=== PATIENT | female | born 1965 | race American Indian/Alaskan Native ===

== ENCOUNTER 2016-08-16 09:23 | Emergency (ER) | payer MEDICARE ==
--- NOTE | 2016-08-16 10:39 | Emergency Department Report ---
Chief Complaint: Fall Stated Complaint: FELL/BACK PAIN Time Seen by Provider: 08/16/16 10:25 - HPI History of Present Illness: 50-year-old female presents today with back pain and left knee pain post fall that occurred yesterday. Patient states she landed on her back also complaining of chest pain, productive cough with green sputum and headache. Denies fever, chills, nausea, vomiting, shortness of breath, abdominal pain. - ROS Review of Systems: Per HPI - Exam Vital Signs: Vital Signs 08/16/16 10:08 Temperature 98.4 F Pulse Rate 98 H Respiratory 18 Rate Blood Pressure 123/81 O2 Sat by Pulse 96 Oximetry Physical Exam: General: 50-year-old female in mild to moderate distress. Well-developed, well- nourished. CV: Regular rate and rhythm. Lungs: Clear to auscultation bilaterally. Back: Full ROM. Positive for midline and paraspinal tenderness of the lumbar region. Left knee: Full range of motion. Tenderness to palpation of the knee joint. MSE screening note: Focused history and physical exam performed. Due to findings the following was ordered: ED Disposition for MSE Condition: Stable
[2016-08-16 10:48] LABS: Basophils % (Auto) 0.5 % (0.0-1.8); Eosinophils % (Auto) 0.8 % (0.0-4.3); Hematocrit 38.8 % (30.3-42.9); Hemoglobin 12.7 gm/dl (10.1-14.3); Mean Corpuscular HGB Conc 33 % (30-34); Mean Corpuscular Hemoglobin 28 pg (28-32); Mean Corpuscular Volume 84 fl (79-97); Platelet Count 137 K/mm3 (140-440); Red Blood Count 4.59 M/mm3 (3.65-5.03); Red Cell Distribution Width 14.4 % (13.2-15.2); White Blood Count 5.1 K/mm3 (4.5-11.0)
[2016-08-16 11:12] LABS: Creatine Kinase MB < 1.0 ng/mL (0.0-4.0)
[2016-08-16 11:13] LABS: Anion Gap 16 mmol/L; BUN/Creatinine Ratio 18.57; Blood Urea Nitrogen 13 mg/dL (7-17); Calcium 9.5 mg/dL (8.4-10.2); Carbon Dioxide 29 mmol/L (22-30); Chloride 95.7 mmol/L (98-107); Creatine Kinase 52 units/L (30-135); Glucose 319 mg/dL (65-100); Potassium 3.9 mmol/L (3.6-5.0); Sodium 137 mmol/L (137-145)
--- NOTE | 2016-08-16 11:55 | XRay Report ---
LEFT KNEE RADIOGRAPHS INDICATION: Fall, pain. COMPARISON: None similar. FINDINGS: AP, oblique and somewhat over flexed lateral left knee radiographs demonstrate intact articulation. Slight degenerative spurring. Some medial compartment and patellofemoral joint space narrowing not entirely excluded. No definite suprapatellar effusion identified, though some suprapatellar soft tissue swelling questioned on the lateral view. No radiopaque foreign body. CONCLUSION: Questionable mild left suprapatellar soft tissue swelling without acute bony abnormality. Please correlate. Thank you for the opportunity to participate in this patient's care.
--- NOTE | 2016-08-16 11:56 | XRay Report ---
CHEST 2 VIEWS INDICATION: Chest pain. COMPARISON: 04/25/2015 FINDINGS: PA and lateral chest radiographs demonstrate interval right-sided dual-lumen catheter removal. Stable cardiomediastinal silhouette/mild cardiomegaly. Clear lungs without pleural effusions or CHF. Right hemidiaphragm again slightly elevated. Mild thoracic spine degenerative changes. Possible osteopenia. CONCLUSION: No acute chest process with interval removal of right-sided central catheter, as described. Thank you for the opportunity to participate in this patient's care.
--- NOTE | 2016-08-16 11:56 | XRay Report ---
LUMBAR SPINE RADIOGRAPHS: INDICATION: Fall, midline tenderness. COMPARISON: 09/06/2014. FINDINGS: AP and lateral lumbar spine radiographs demonstrate normal vertebral body stature with slight levocurvature, possibly positional. Mid to lower lumbar facet arthropathy and vertebral body degenerative spurring also noted, most about L3 and L4. Fairly preserved disc heights. Clear visualized lung bases. New presumed cholecystectomy clips as also few other surgical clips projecting about the left iliac crest medially. Nonobstructive bowel gas pattern with some colonic stool noted. CONCLUSION: No acute lumbar radiographic abnormality with few degenerative changes and new surgical clips noted, as described. Please correlate. Thank you for the opportunity to participate in this patient's care.
[2016-08-16] MEDS ORDERED: AFRIN NS ONE (20:41)
[2016-08-16] MEDS ORDERED: VALIUM IM ONE (20:41)
--- NOTE | 2016-08-16 20:47 | Emergency Department Report ---
ED General Adult HPI - General Chief complaint: Fall Stated complaint: FELL/BACK PAIN Time Seen by Provider: 08/16/16 10:25 Source: patient, RN notes reviewed, old records reviewed Mode of arrival: Ambulatory Limitations: No Limitations - History of Present Illness Initial comments: This is a 50-year-old female, previously unknown to me. Primary care physician is Dr. Parul Soriano. Past medical history includes diabetes, HIV on highly active antiretrovirals therapy, pancreatitis. The patient presents to the ER after fall. Patient reports that she slipped and fell in her tub yesterday. The first time she fell , she landed on her buttocks. She then reports attempting to get up, and slipping again, landing on her left wrist, left knee, right chest wall, hitting her head and her neck. She complains of headache, neck pain. She also complains of lower back pain. The pain is sharp. It increases with palpation or range of motion. It decreases with rest. Incidentally, patient complains of nasal fullness, nasal stuffiness, chest congestion. There is no vomiting, diaphoresis, severe shortness of breath. Chest pressure does not radiates to the back, arms or neck. No recent trips greater than 4 hours. No recent hospital admissions. No posterior leg pain, no recent trips. -: Gradual Location: head, neck, chest, back, left, right, upper extremity Radiation: distal Severity scale (0 -10): 10 Quality: aching Consistency: intermittent Improves with: rest Worsens with: movement Associated Symptoms: cough, headaches, loss of appetite, weakness - Related Data Home Medications Medication Instructions Recorded Confirmed Last Taken Darunavir/Cobicistat [Prezcobix 600 mg PO QDAY 04/18/16 08/16/16 Unknown 800 mg-150 mg Tablet] Dolutegravir Sodium [Tivicay] 50 mg PO QDAY 04/18/16 08/16/16 Unknown Insulin Glargine [Lantus] 20 unit SUB-Q QHS 04/18/16 08/16/16 Unknown Insulin Aspart Prot/Aspart 20 units SQ QPM 08/16/16 08/16/16 Unknown [Novolog Mix 70/30] Insulin Aspart Prot/Aspart 30 units SQ QAM 08/16/16 08/16/16 Unknown [Novolog Mix 70/30] Previous Rx's Medication Instructions Recorded Last Taken Type Albuterol Sulfate [Proair 90 mcg IH Q4HR PRN #2 aer.pow.ba 08/16/16 Unknown Rx Respiclick] Benzonatate [Tessalon Perles] 100 mg PO Q8HR PRN #30 capsule 08/16/16 Unknown Rx Fluticasone [Flonase] 1 spray NS QDAY #1 bottle 08/16/16 Unknown Rx Ketorolac [Toradol] 10 mg PO Q6H PRN #20 tablet 08/16/16 Unknown Rx Allergies Allergy/AdvReac Type Severity Reaction Status Date / Time No Known Allergies Allergy Verified 04/02/15 13:10 ED Review of Systems ROS: Stated complaint: FELL/BACK PAIN Other details as noted in HPI Constitutional: malaise ENT: congestion Respiratory: cough Cardiovascular: chest pain Gastrointestinal: denies: abdominal pain Genitourinary: denies: urgency, dysuria Musculoskeletal: back pain, arthralgia, myalgia Skin: denies: lesions Neurological: headache ED Past Medical Hx - Past Medical History Previous Medical History?: Yes Hx Hypertension: No Hx Diabetes: Yes Hx Deep Vein Thrombosis: No Hx HIV: Yes - Surgical History Past Surgical History?: Yes Hx Pacemaker: No Hx Internal Defibrillator: No Hx Cholecystectomy: Yes Additional Surgical History: x 3 - Social History Smoking Status: Never Smoker Substance Use Type: None - Medications Home Medications: Home Medications Medication Instructions Recorded Confirmed Last Taken Type Darunavir/Cobicistat [Prezcobix 600 mg PO QDAY 04/18/16 08/16/16 Unknown History 800 mg-150 mg Tablet] Dolutegravir Sodium [Tivicay] 50 mg PO QDAY 04/18/16 08/16/16 Unknown History Insulin Glargine [Lantus] 20 unit SUB-Q QHS 04/18/16 08/16/16 Unknown History Albuterol Sulfate [Proair 90 mcg IH Q4HR PRN #2 aer.pow.ba 08/16/16 Unknown Rx Respiclick] Benzonatate [Tessalon Perles] 100 mg PO Q8HR PRN #30 capsule 08/16/16 Unknown Rx Fluticasone [Flonase] 1 spray NS QDAY #1 bottle 08/16/16 Unknown Rx Insulin Aspart Prot/Aspart 20 units SQ QPM 08/16/16 08/16/16 Unknown History [Novolog Mix 70/30] Insulin Aspart Prot/Aspart 30 units SQ QAM 08/16/16 08/16/16 Unknown History [Novolog Mix 70/30] Ketorolac [Toradol] 10 mg PO Q6H PRN #20 tablet 08/16/16 Unknown Rx ED Physical Exam - General Limitations: No Limitations General appearance: alert, in no apparent distress - Head Head exam: Present: atraumatic, normocephalic - Eye Eye exam: Present: normal appearance, PERRL, EOMI. Absent: nystagmus - ENT ENT exam: Present: normal exam, normal orophraynx, mucous membranes moist, normal external ear exam, other (nasal congestion is noted bilaterally.) - Neck Neck exam: Present: normal inspection, tenderness, other (there is midline and paracervical spinal tenderness. No midline step-offs.) - Respiratory Respiratory exam: Present: normal lung sounds bilaterally, chest wall tenderness (reproducible right-sided lateral thoracic chest wall tenderness. No obvious step-offs.). Absent: respiratory distress, wheezes, rales, rhonchi, stridor, accessory muscle use, prolonged expiratory - Cardiovascular Cardiovascular Exam: Present: regular rate, normal rhythm, normal heart sounds. Absent: bradycardia, tachycardia, irregular rhythm, systolic murmur, diastolic murmur, rubs, gallop - GI/Abdominal GI/Abdominal exam: Present: soft, normal bowel sounds. Absent: distended, tenderness, guarding, rebound, rigid, pulsatile mass - Extremities Exam Extremities exam: Present: normal inspection, full ROM, tenderness (there is minimal left-sided knee tenderness. No large bony step-offs. The pelvis is stable. Compartments are soft.), normal capillary refill, other (2+ pulses noted in 4 extremities.). Absent: pedal edema, joint swelling, calf tenderness - Back Exam Back exam: Present: normal inspection, tenderness, paraspinal tenderness, vertebral tenderness - Neurological Exam Neurological exam: Present: alert, oriented X3, other (Extraocular movements intact. Tongue midline. No facial droop. Facial sensation intact to light touch in the V1, V2, V3 distribution bilaterally. 5 and 5 strength in 4 extremities.. Sensation is intact to light touch in 4 extremities.). Absent: motor sensory deficit - Psychiatric Psychiatric exam: Present: anxious - Skin Skin exam: Present: warm, dry, intact, normal color. Absent: rash ED Course Vital Signs 08/16/16 08/16/16 08/16/16 10:08 20:21 20:26 Temperature 98.4 F Pulse Rate 98 H 87 Respiratory 18 20 18 Rate Blood Pressure 123/81 Blood Pressure 108/62 [Left] O2 Sat by Pulse 96 99 99 Oximetry 08/16/16 08/16/16 22:00 23:14 Temperature Pulse Rate 94 H Respiratory 20 18 Rate Blood Pressure Blood Pressure 116/68 [Left] O2 Sat by Pulse 99 Oximetry - Reevaluation(s) Reevaluation #1: 08/16/16 20:45 Differential diagnosis: Sinusitis,, viral syndrome, intracranial injury, cervical spine injury, lumbar spine injury, chest wall contusion, pneumonia Assessment and plan: 50-year-old female status post multiple mechanical falls yesterday, with headache, neck pain, back pain, right lateral thoracic wall pain , left knee pain. She has a GCS of 15, with an NIH score of 0. Has midline and paracervical cervical spine tenderness. Cervical collar is ordered. Patient is very anxious, has a significant pain component, may be somewhat anxious. We will obtain CT of the head, cervical spine, lumbar spine to exclude medical injury, although I highly doubt that she has no evident injury. When she is distracted, I am able to fully range her upper and lower extremities, and there is no snuffbox tenderness or pain with somewhat axial loading. Her chest discomfort seems to be consistent with a viral syndrome/ cough. It has been present since yesterday. There are no pulmonary embolus or DVT risk factors, she is low risk by well's criteria, and she is low risk by the heart score as well as by ERVIN score. All of her chest congestion is in the context of facial fullness, nasal congestion, cough. Reevaluation #2: 08/16/16 22:24 Reassessed. Cervical collar cleared. CT of the brain, cervical spine, lumbar spine negative for traumatic injury. Repeat neurologic exam unremarkable and unchanged. Patient is instructed to expect to be sore over the next few days. She will be discharged with nonnarcotic pain medication, cough medication, Flonase. She is instructed to follow-up with the primary care doctor. Return precautions are reviewed. ED Medical Decision Making - Lab Data Result diagrams: 08/16/16 10:39 08/16/16 10:39 Vital Signs 08/16/16 08/16/16 08/16/16 10:08 20:21 20:26 Temperature 98.4 F Pulse Rate 98 H 87 Respiratory 18 20 18 Rate Blood Pressure 123/81 Blood Pressure 108/62 [Left] O2 Sat by Pulse 96 99 99 Oximetry Lab Results 08/16/16 08/16/16 08/16/16 Range/Units 10:13 10:39 10:39 WBC 5.1 (4.5-11.0) K/mm3 RBC 4.59 (3.65-5.03) M/mm3 Hgb 12.7 (10.1-14.3) gm/dl Hct 38.8 (30.3-42.9) % MCV 84 (79-97) fl MCH 28 (28-32) pg MCHC 33 (30-34) % RDW 14.4 (13.2-15.2) % Plt Count 137 L (140-440) K/mm3 Lymph % (Auto) 17.5 (13.4-35.0) % [place] % (Auto) 7.3 (0.0-7.3) % Eos % (Auto) 0.8 (0.0-4.3) % Baso % (Auto) 0.5 (0.0-1.8) % Lymph # 0.9 L (1.2-5.4) K/mm3 [place] # 0.4 (0.0-0.8) K/mm3 Eos # 0.0 (0.0-0.4) K/mm3 Baso # 0.0 (0.0-0.1) K/mm3 Seg Neutrophils % 73.9 H (40.0-70.0) % Seg Neutrophils # 3.8 (1.8-7.7) K/mm3 Sodium 137 (137-145) mmol/L Potassium 3.9 (3.6-5.0) mmol/L Chloride 95.7 L (98-107) mmol/L Carbon Dioxide 29 (22-30) mmol/L Anion Gap 16 mmol/L BUN 13 (7-17) mg/dL Creatinine 0.7 (0.7-1.2) mg/dL Estimated GFR > 60 ml/min BUN/Creatinine Ratio 18.57 % Glucose 319 H (65-100) mg/dL POC Glucose 286 H (70-105) Calcium 9.5 (8.4-10.2) mg/dL Total Creatine Kinase 52 (30-135) units/L CK-MB (CK-2) < 1.0 (0.0-4.0) ng/mL CK-MB (CK-2) Rel Index 1.9 (0-4) Troponin T < 0.010 (0.00-0.029) ng/mL - EKG Data 08/16/16 20:48 Normal sinus, 92 bpm, atrial enlargement, nonspecific T-wave abnormality, not morphologically consistent with STEMI. Appears unchanged from prior EKG 2015. - Radiology Data Radiology results: report reviewed, image reviewed X-ray of the chest unremarkable and within normal limits. X-ray of the lumbar spine negative. X-ray of the left knee negative for fracture and dislocation. Noncontrast CT scan of the head, cervical spine, lumbar spine negative for acute traumatic disease. Critical care attestation.: If time is entered above; I have spent that time in minutes in the direct care of this critically ill patient, excluding procedure time. ED Disposition Clinical Impression: Fall, Back pain, Bronchitis Disposition: DISCHARGED TO HOME OR SELFCARE Is pt being admited?: No Does the pt Need Aspirin: No Condition: Stable Instructions: Acute Bronchitis (ED), Fall Prevention (ED) Additional Instructions: Pain typically gets worse before it gets better. X-rays, CT scan of the head, cervical spine, lumbar spine did not demonstrate obvious fracture/dislocation. Use the Afrin in each nostril every 12 hours for the next 2 days. Do not use the Afrin more often than that or for longer than that. Take pain medication, cough medication as directed. Follow-up with the primary care doctor within the next week to 10 days. Return to the ER right away with new pain, worsened pain, migration of pain, fevers or chills, nausea or vomiting, inability to tolerate liquid feeds. Prescriptions: Fluticasone [Flonase] 1 spray NS QDAY #1 bottle Albuterol Sulfate [Proair Respiclick] 90 mcg IH Q4HR PRN #2 aer.pow.ba PRN Reason: Wheezing Benzonatate [Tessalon Perles] 100 mg PO Q8HR PRN #30 capsule PRN Reason: Cough Ketorolac [Toradol] 10 mg PO Q6H PRN #20 tablet PRN Reason: Pain Referrals: PARUL SORIANO MD [Primary Care Provider] - 3-5 Days
--- NOTE | 2016-08-16 21:44 | Cat Scan Report ---
FINAL REPORT PROCEDURE: CT LUMBAR SPINE WO CON TECHNIQUE: Computerized axial tomography of the lumbar spine was performed from T12 to the sacrum without contrast material. HISTORY: HEADACHE TRAUMA COMPARISON: No prior studies are available for comparison. FINDINGS: Alignment is satisfactory. No fracture. L1-2: No significant abnormality. L2-3: No significant abnormality. L3-4: Mild anterior spurring. Disc bulge. Facet spurring. No canal stenosis. L4-5: Disc bulge. No disc herniation. Mild facet spurring. L5-S1: No significant abnormality. Other: Atherosclerotic calcifications. Cholecystectomy clips. IMPRESSION: No fracture. Mild degenerative change.
--- NOTE | 2016-08-16 21:50 | Cat Scan Report ---
FINAL REPORT PROCEDURE: CT CERVICAL SPINE WO CON TECHNIQUE: Computerized tomography of the cervical spine was performed from the skull base to T1 without contrast material. HISTORY: HEADACHE TRAUMA COMPARISON: No prior studies are available for comparison. FINDINGS: Reversal of the cervical lordosis. Alignment is otherwise satisfactory. No fracture. Odontoid process is intact. C1-2: Mild spurring of the anterior atlantoaxial articulation. C2-3: No significant abnormality. C3-4: Disc bulge. No disc herniation. No canal stenosis. C4-5: Disc bulge with mild spurring. No disc herniation. No canal stenosis. C5-6: Disc space narrowing with endplate change. Disc bulge and spurring asymmetric to the right. Narrowing of the right lateral recess. Facet and uncovertebral spurring with right greater than left foraminal encroachment. No canal stenosis. C6-7: Disc bulge with right paracentral disc protrusion narrowing the right lateral recess. C7-T1: No significant abnormality. Other: Fibrotic densities at the lung apices. Atherosclerotic calcifications. IMPRESSION: Degenerative change including spurring asymmetric to the right at C5-6. No fracture.
--- NOTE | 2016-08-16 21:55 | Cat Scan Report ---
FINAL REPORT PROCEDURE: CT HEAD/BRAIN WO CON TECHNIQUE: Computerized tomography of the head was performed without contrast material. HISTORY: HEADACHE TRAUMA COMPARISON: No prior studies are available for comparison. FINDINGS: Skull and scalp: Normal. Paranasal sinuses: Mild mucosal thickening.. Ventricles and subarachnoid spaces: Normal. Cerebrum: No evidence of hemorrhage, acute infarction or mass . Cerebellum and brainstem: No evidence of hemorrhage, acute infarction or mass. Vasculature: Normal. Comments: None. IMPRESSION: Normal CT brain. No hemorrhage.
[2016-08-16] MEDS ORDERED: TORADOL IM ONE (22:24)
[2016-08-16 23:17] VITALS: BP 116/68
== END 2016-08-16 23:17 | disposition home or self-care (01) ==
LOC: ED 09:23
DX: J40 Bronchitis, not specified as acute or chronic (principal); M54.9 Dorsalgia, unspecified; E11.9 Type 2 diabetes mellitus without complications; Z79.4 Long term (current) use of insulin; W19.XXXA Unspecified fall, initial encounter; Y93.89 Activity, other specified; Y99.8 Other external cause status; Y92.89 Other specified places as the place of occurrence of the external cause
CPT/HCPCS: 36415; 70450; 71020; 72100; 72125; 72131; 73562; 80048; 82550; 82553; 82962; 84484; 85025; 93005; 93010; 96372; 99284; J1885; J3360

== ENCOUNTER 2017-03-10 10:24 | Emergency (ER) | payer MEDICARE ==
[2017-03-10 11:06] LABS: Basophils % (Auto) 0.4 % (0.0-1.8); Eosinophils % (Auto) 1.2 % (0.0-4.3); Hematocrit 39.4 % (30.3-42.9); Mean Corpuscular HGB Conc 33 % (30-34); Mean Corpuscular Hemoglobin 29 pg (28-32); Mean Corpuscular Volume 88 fl (79-97); Platelet Count 155 K/mm3 (140-440); Red Blood Count 4.49 M/mm3 (3.65-5.03); Red Cell Distribution Width 13.8 % (13.2-15.2); White Blood Count 5.3 K/mm3 (4.5-11.0)
[2017-03-10 11:20] LABS: Alanine Aminotransferase 12 units/L (7-56); Albumin/Globulin Ratio 1.1 %; Alkaline Phosphatase 57 units/L (35-129); Anion Gap 19 mmol/L; BUN/Creatinine Ratio 24.44; Blood Urea Nitrogen 22 mg/dL (7-17); Carbon Dioxide 25 mmol/L (22-30); Chloride 95.6 mmol/L (98-107); Glucose 297 mg/dL (65-100); Lipase 28 units/L (13-60); Potassium 4.3 mmol/L (3.6-5.0); Sodium 135 mmol/L (137-145); Total Protein 7.5 g/dL (6.3-8.2)
[2017-03-10 12:51] LABS: Bacteria,Urine 4+ /HPF (Negative); Bilirubin,Urine NEG (Negative); Blood,Urine NEG (Negative); Ketones,Urine NEG (Negative); Leukocyte Esterase,Urine NEG (Negative); Nitrite,Urine NEG (Negative); Protein,Urine <15 mg/dL mg/dL (Negative); Urobilinogen,Urine < 2.0 mg/dL (<2.0)
[2017-03-10] MEDS ORDERED: MORPHINE IV ONE (13:33)
[2017-03-10] MEDS ORDERED: ZOFRAN IV ONE (13:33)
[2017-03-10] MEDS ORDERED: NACL 0.9% 1000 ML 1,000 ML IV ONE (13:33)
--- NOTE | 2017-03-10 13:38 | Emergency Department Report ---
ED Abdominal Pain HPI - General Chief Complaint: Abdominal Pain Stated Complaint: BLACK STOOL,ABD PAIN Time Seen by Provider: 03/10/17 13:28 Source: patient Mode of arrival: Ambulatory Limitations: No Limitations - History of Present Illness Initial Comments: 51 years old history of HIV presented to the ER with a main complaint of abdominal pain nausea and dizziness starting him on for 4 days. She stated that she had fever yesterday 101. Denied any urinary symptoms no cough no diarrhea. MD Complaint: abdominal pain, flank pain Location: diffuse Radiation: back Quality: stabbing Improves With: nothing - Related Data Home Medications Medication Instructions Recorded Confirmed Last Taken Darunavir/Cobicistat (Nf) 600 mg PO QDAY 04/18/16 08/16/16 Unknown [Prezcobix 800 mg-150 mg Tablet] Dolutegravir Sodium [Tivicay] 50 mg PO QDAY 04/18/16 08/16/16 Unknown Insulin Glargine [Lantus] 20 unit SUB-Q QHS 04/18/16 08/16/16 Unknown Insulin Aspart Prot/Aspart(Nf) 20 units SQ QPM 08/16/16 08/16/16 Unknown [Novolog Mix 70/30] Insulin Aspart Prot/Aspart(Nf) 30 units SQ QAM 08/16/16 08/16/16 Unknown [Novolog Mix 70/30] Previous Rx's Medication Instructions Recorded Last Taken Type Albuterol Sulfate [Proair 90 mcg IH Q4HR PRN #2 aer.pow.ba 08/16/16 Unknown Rx Respiclick] Benzonatate [Tessalon Perles] 100 mg PO Q8HR PRN #30 capsule 08/16/16 Unknown Rx Fluticasone [Flonase] 1 spray NS QDAY #1 bottle 08/16/16 Unknown Rx Ketorolac [Toradol] 10 mg PO Q6H PRN #20 tablet 08/16/16 Unknown Rx Ciprofloxacin HCl [Ciprofloxacin 500 mg PO Q12H #20 tab 03/10/17 Unknown Rx TAB] Ondansetron [Zofran Odt] 4 mg PO Q8HR PRN #14 tab.rapdis 03/10/17 Unknown Rx metroNIDAZOLE [Flagyl CAP] 375 mg PO Q8H #21 capsule 03/10/17 Unknown Rx traMADol [Ultram] 50 mg PO Q6HR PRN #14 tablet 03/10/17 Unknown Rx Allergies Allergy/AdvReac Type Severity Reaction Status Date / Time No Known Allergies Allergy Verified 03/10/17 10:33 ED Review of Systems ROS: Stated complaint: BLACK STOOL,ABD PAIN Other details as noted in HPI Comment: All other systems reviewed and negative Constitutional: chills, fever Respiratory: denies: cough, shortness of breath, SOB with exertion Cardiovascular: denies: chest pain, palpitations, dyspnea on exertion Endocrine: denies: excessive sweating Gastrointestinal: abdominal pain, vomiting. denies: diarrhea, constipation, hematemesis, melena, hematochezia Genitourinary: denies: dysuria, frequency Neurological: denies: headache, weakness, numbness ED Past Medical Hx - Past Medical History Hx Hypertension: No Hx Diabetes: Yes Hx Deep Vein Thrombosis: No Hx Renal Disease: Yes Hx HIV: Yes - Surgical History Hx Pacemaker: No Hx Internal Defibrillator: No Hx Cholecystectomy: Yes Additional Surgical History: x 3. PERMA CATH AND REMOVAL. PSEUDO CYSTS REMOVED FROM PANCREAS - Social History Smoking Status: Current Every Day Smoker Substance Use Type: None - Medications Home Medications: Home Medications Medication Instructions Recorded Confirmed Last Taken Type Darunavir/Cobicistat (Nf) 600 mg PO QDAY 04/18/16 08/16/16 Unknown History [Prezcobix 800 mg-150 mg Tablet] Dolutegravir Sodium [Tivicay] 50 mg PO QDAY 04/18/16 08/16/16 Unknown History Insulin Glargine [Lantus] 20 unit SUB-Q QHS 04/18/16 08/16/16 Unknown History Albuterol Sulfate [Proair 90 mcg IH Q4HR PRN #2 aer.pow.ba 08/16/16 Unknown Rx Respiclick] Benzonatate [Tessalon Perles] 100 mg PO Q8HR PRN #30 capsule 08/16/16 Unknown Rx Fluticasone [Flonase] 1 spray NS QDAY #1 bottle 08/16/16 Unknown Rx Insulin Aspart Prot/Aspart(Nf) 20 units SQ QPM 08/16/16 08/16/16 Unknown History [Novolog Mix 70/30] Insulin Aspart Prot/Aspart(Nf) 30 units SQ QAM 08/16/16 08/16/16 Unknown History [Novolog Mix 70/30] Ketorolac [Toradol] 10 mg PO Q6H PRN #20 tablet 08/16/16 Unknown Rx Ciprofloxacin HCl [Ciprofloxacin 500 mg PO Q12H #20 tab 03/10/17 Unknown Rx TAB] Ondansetron [Zofran Odt] 4 mg PO Q8HR PRN #14 tab.rapdis 03/10/17 Unknown Rx metroNIDAZOLE [Flagyl CAP] 375 mg PO Q8H #21 capsule 03/10/17 Unknown Rx traMADol [Ultram] 50 mg PO Q6HR PRN #14 tablet 03/10/17 Unknown Rx ED Physical Exam - General Limitations: No Limitations General appearance: alert, in no apparent distress - Head Head exam: Present: atraumatic - Eye Eye exam: Present: normal appearance - ENT ENT exam: Present: normal exam - Neck Neck exam: Present: normal inspection. Absent: tenderness, meningismus, full ROM, lymphadenopathy - Respiratory Respiratory exam: Present: normal lung sounds bilaterally. Absent: respiratory distress, wheezes, rales, rhonchi, stridor, chest wall tenderness, accessory muscle use, decreased breath sounds, prolonged expiratory - Cardiovascular Cardiovascular Exam: Present: regular rate, normal rhythm, normal heart sounds - GI/Abdominal GI/Abdominal exam: Present: soft, tenderness. Absent: distended, guarding, rebound, rigid, normal bowel sounds, diminished bowel sounds, hyperactive bowel sounds, hypoactive bowel sounds, organomegaly, mass, bruit, pulsatile mass, hernia - Extremities Exam Extremities exam: Present: normal inspection, full ROM. Absent: tenderness, normal capillary refill, pedal edema, joint swelling - Neurological Exam Neurological exam: Present: alert, oriented X3, CN II-XII intact - Skin Skin exam: Present: warm, intact, normal color ED Course Vital Signs 03/10/17 10:36 Temperature 98.2 F Pulse Rate 85 Respiratory 17 Rate Blood Pressure 121/80 O2 Sat by Pulse 96 Oximetry - Reevaluation(s) Reevaluation #1: 03/10/17 15:07 Patient stated that she is feeling much better informed about her CT scan reports. He was started on Cipro and Flagyl and advised follow-up with her primary care physician in the next 2-3 days. ED Medical Decision Making - Lab Data Result diagrams: 03/10/17 10:49 03/10/17 10:49 Critical care attestation.: If time is entered above; I have spent that time in minutes in the direct care of this critically ill patient, excluding procedure time. ED Disposition Clinical Impression: Abdominal pain, Enteritis Disposition: TO HOME OR SELFCARE Is pt being admited?: No Condition: Stable Instructions: Abdominal Pain (ED), Infectious Colitis (ED) Referrals: PARUL DESIR MD [Primary Care Provider] - 3-5 Days
--- NOTE | 2017-03-10 14:30 | Cat Scan Report ---
This IV contrast: History: Abdominal pain, back pain. Findings: Normal lung bases. No pleural or pericardial effusion. Normal liver, spleen and pancreas. Patient status post cholecystectomy. No intrahepatic duct dilatation. Normal adrenals. Subcentimeter hypodense densities in cortex of left kidney probably small cysts. Normal bladder. No free intraperitoneal fluid or air. No evidence of adenopathy. Atherosclerotic abdominal aorta without aneurysm. Normal appendix and terminal ileum. Few scattered diverticula in sigmoid with minimal stool in colon. No bowel distention. Suspected minimal thickening of the wall of small bowel loops with fluid within the bowel Impression: No definite acute abdominal findings though possibility of mild enteritis cannot be excluded. Small left kidney cortical cysts.
[2017-03-10 15:44] VITALS: BP 128/78
== END 2017-03-10 15:43 | disposition home or self-care (01) ==
LOC: ED 10:24
DX: K52.9 Noninfective gastroenteritis and colitis, unspecified (principal); E11.9 Type 2 diabetes mellitus without complications; F17.200 Nicotine dependence, unspecified, uncomplicated
CPT/HCPCS: 36415; 74177; 80053; 81001; 83690; 85025; 96361; 96374; 96375; 99284; J2270; J2405; J7030; Q9967; J1815

== ENCOUNTER 2017-06-13 14:38 | Emergency (ER) | payer MEDICARE ==
[2017-06-13 14:46] VITALS: BP 120/80
--- NOTE | 2017-06-13 16:28 | XRay Report ---
CHEST 2 VIEWS INDICATION: Chest pain. COMPARISON: 08/16/2016. FINDINGS: PA and lateral chest radiographs demonstrate top normal heart size. Normal mediastinal contours. Clear lungs. Mild thoracic spondylosis. CONCLUSION: No acute disease in the chest. Thank you for the opportunity to participate in this patient's care.
[2017-06-13] MEDS ORDERED: TORADOL IM ONE (16:31)
[2017-06-13] MEDS ORDERED: TORADOL ONE (17:13)
--- NOTE | 2017-06-13 17:15 | Emergency Department Report ---
ED Back Pain/Injury HPI - General Chief Complaint: Back Pain/Injury Stated Complaint: BACK PAIN, AND C/P Time Seen by Provider: 06/13/17 16:30 Source: patient Limitations: No Limitations - History of Present Illness Initial Comments: pt is a 51 y/o aaf with hx of low back pain who presents for for left lateral upper back and chest wall pain with deep inspiration. no sob no dizziness no n/ v no numbness. pt denies cough or fever, no chills, MD Complaint: back pain Onset/Timin -: week(s) Similar Symptoms Previously: Yes Place: home Radiation: other (left upper back ) Severity: moderate Severity scale (0 -10): 4 Quality: sharp Consistency: intermittent Improves With: none Worsens With: deep breaths/cough Context: while lifting, turning/twisting Associated Symptoms: chest pain (chest wall pain ), cough. denies: confusion, weakness, numbness, difficulty walking, difficulty urinating, incontinence, fever/chills, constipation, headaches, abdominal pain, loss of appetite, malaise , nausea/vomiting, rash, seizure, shortness of breath, syncope - Related Data Home Medications Medication Instructions Recorded Confirmed Last Taken Darunavir/Cobicistat (Nf) 600 mg PO QDAY 04/18/16 08/16/16 Unknown [Prezcobix 800 mg-150 mg Tablet] Dolutegravir Sodium [Tivicay] 50 mg PO QDAY 04/18/16 08/16/16 Unknown Insulin Glargine [Lantus] 20 unit SUB-Q QHS 04/18/16 08/16/16 Unknown Insulin Aspart Prot/Aspart(Nf) 20 units SQ QPM 08/16/16 08/16/16 Unknown [Novolog Mix 70/30] Insulin Aspart Prot/Aspart(Nf) 30 units SQ QAM 08/16/16 08/16/16 Unknown [Novolog Mix 70/30] Previous Rx's Medication Instructions Recorded Last Taken Type Albuterol Sulfate [Proair 90 mcg IH Q4HR PRN #2 aer.pow.ba 08/16/16 Unknown Rx Respiclick] Benzonatate [Tessalon Perles] 100 mg PO Q8HR PRN #30 capsule 08/16/16 Unknown Rx Fluticasone [Flonase] 1 spray NS QDAY #1 bottle 08/16/16 Unknown Rx Ketorolac [Toradol] 10 mg PO Q6H PRN #20 tablet 08/16/16 Unknown Rx Ciprofloxacin HCl [Ciprofloxacin 500 mg PO Q12H #20 tab 03/10/17 Unknown Rx TAB] Ondansetron [Zofran Odt] 4 mg PO Q8HR PRN #14 tab.rapdis 03/10/17 Unknown Rx metroNIDAZOLE [Flagyl CAP] 375 mg PO Q8H #21 capsule 03/10/17 Unknown Rx traMADol [Ultram] 50 mg PO Q6HR PRN #14 tablet 03/10/17 Unknown Rx Cyclobenzaprine [Flexeril] 10 mg PO TID PRN #30 tablet 06/13/17 Unknown Rx Naproxen 500 mg PO BID PRN #60 tablet 06/13/17 Unknown Rx Allergies Allergy/AdvReac Type Severity Reaction Status Date / Time No Known Allergies Allergy Verified 03/10/17 10:33 ED Review of Systems ROS: Stated complaint: BACK PAIN, AND C/P Other details as noted in HPI Constitutional: denies: chills, fever Eyes: denies: eye pain, eye discharge, vision change ENT: denies: ear pain, throat pain Respiratory: denies: cough, shortness of breath, wheezing Cardiovascular: chest pain (chest wall pain ). denies: palpitations, dyspnea on exertion, orthopnea, edema, syncope, paroxysmal nocturnal dyspnea Endocrine: no symptoms reported Gastrointestinal: denies: abdominal pain, nausea, diarrhea Genitourinary: denies: urgency, dysuria, discharge Musculoskeletal: denies: back pain, joint swelling, arthralgia Skin: denies: rash, lesions Neurological: denies: headache, weakness, paresthesias Psychiatric: denies: anxiety, depression Hematological/Lymphatic: denies: easy bleeding, easy bruising ED Past Medical Hx - Past Medical History Hx Hypertension: No Hx Diabetes: Yes Hx Deep Vein Thrombosis: No Hx Renal Disease: Yes Hx HIV: Yes - Surgical History Hx Pacemaker: No Hx Internal Defibrillator: No Hx Cholecystectomy: Yes Additional Surgical History: x 3. PERMA CATH AND REMOVAL. PSEUDO CYSTS REMOVED FROM PANCREAS - Social History Smoking Status: Never Smoker Substance Use Type: None - Medications Home Medications: Home Medications Medication Instructions Recorded Confirmed Last Taken Type Darunavir/Cobicistat (Nf) 600 mg PO QDAY 04/18/16 08/16/16 Unknown History [Prezcobix 800 mg-150 mg Tablet] Dolutegravir Sodium [Tivicay] 50 mg PO QDAY 04/18/16 08/16/16 Unknown History Insulin Glargine [Lantus] 20 unit SUB-Q QHS 04/18/16 08/16/16 Unknown History Albuterol Sulfate [Proair 90 mcg IH Q4HR PRN #2 aer.pow.ba 08/16/16 Unknown Rx Respiclick] Benzonatate [Tessalon Perles] 100 mg PO Q8HR PRN #30 capsule 08/16/16 Unknown Rx Fluticasone [Flonase] 1 spray NS QDAY #1 bottle 08/16/16 Unknown Rx Insulin Aspart Prot/Aspart(Nf) 20 units SQ QPM 08/16/16 08/16/16 Unknown History [Novolog Mix 70/30] Insulin Aspart Prot/Aspart(Nf) 30 units SQ QAM 08/16/16 08/16/16 Unknown History [Novolog Mix 70/30] Ketorolac [Toradol] 10 mg PO Q6H PRN #20 tablet 08/16/16 Unknown Rx Ciprofloxacin HCl [Ciprofloxacin 500 mg PO Q12H #20 tab 03/10/17 Unknown Rx TAB] Ondansetron [Zofran Odt] 4 mg PO Q8HR PRN #14 tab.rapdis 03/10/17 Unknown Rx metroNIDAZOLE [Flagyl CAP] 375 mg PO Q8H #21 capsule 03/10/17 Unknown Rx traMADol [Ultram] 50 mg PO Q6HR PRN #14 tablet 03/10/17 Unknown Rx Cyclobenzaprine [Flexeril] 10 mg PO TID PRN #30 tablet 06/13/17 Unknown Rx Naproxen 500 mg PO BID PRN #60 tablet 06/13/17 Unknown Rx ED Physical Exam - General Limitations: No Limitations General appearance: alert, in no apparent distress - Head Head exam: Present: atraumatic, normocephalic - Eye Eye exam: Present: normal appearance, PERRL, EOMI - ENT ENT exam: Present: mucous membranes moist - Neck Neck exam: Present: normal inspection - Respiratory Respiratory exam: Present: normal lung sounds bilaterally, chest wall tenderness. Absent: respiratory distress, wheezes, rhonchi - Cardiovascular Cardiovascular Exam: Present: regular rate, normal rhythm. Absent: systolic murmur, diastolic murmur, rubs, gallop - GI/Abdominal GI/Abdominal exam: Present: soft, normal bowel sounds. Absent: distended, tenderness, guarding, rebound, rigid, organomegaly, mass, bruit, pulsatile mass , hernia - Rectal Rectal exam: Present: deferred - Extremities Exam Extremities exam: Present: normal inspection, full ROM, normal capillary refill. Absent: tenderness, pedal edema, joint swelling, calf tenderness - Expanded Upper Extremity Exam Left Shoulder Exam: Present: normal inspection, full ROM, tenderness (left lateral muscular pain rom intact unrestricted including shoulder drop and open can ). Absent: swelling, abrasion, laceration, ecchymosis, deformity, crepidus, dislocation, erythema, tenderness over AC joint Upper Arm exam: Present: normal inspection, full ROM Elbow exam: Present: normal inspection, full ROM Forearm Wrist exam: Present: normal inspection, full ROM. Absent: tenderness Hand Wrist exam: Present: normal inspection, full ROM. Absent: tenderness Neuro motor exam: Present: wrist extension intact, thumb opposition intact, thumb IP flexion intact, thumb adduction intact, fingers 2-5 abduction intact Neurosensory exam: Present: 2-point discrimination, radial nerve intact, ulnar nerve intact, median nerve intact Vascular: Present: normal capillary refill, radial pulse, brachial pulse, ulnar pulse. Absent: vascular compromise, Pallo, pulse deficit radial art, pulse deficit ulnar art, pulse deficit brachial art - Back Exam Back exam: Present: normal inspection, full ROM, tenderness (right lower lataral parspinus pain to deep palpation no vertebral point tenderness ), muscle spasm, paraspinal tenderness. Absent: CVA tenderness (R), CVA tenderness (L), vertebral tenderness, rash noted - Expanded Back Exam Expanded Back exam: Absent: saddle anesthesia Back exam: Sciatic Notch Tenderness: Right, Positive Straight Leg Raise: Right, Negative Straight Leg Raising: Left - Neurological Exam Neurological exam: Present: alert, oriented X3, CN II-XII intact, normal gait, reflexes normal. Absent: motor sensory deficit - Expanded Neurological Exam Expanded Patient oriented to: Present: person, place, time Speech: Present: fluid speech Cranial nerves: EOM's Intact: Normal, Gag Reflex: Normal, Tongue Deviation: Normal, Nystagmus: Normal, Facial Sensation: Normal Cerebellar function: Finger to Nose: Normal, Heel to Cormier: Normal, Romberg: Normal Upper motor neuron: Tahir Neglect: Normal, Pronator Drift: Normal, Babinski Sign : Normal, Sensory Extinction: Normal Sensory exam: Upper Extremity Light Touch: Normal, Upper Extremity Pin Prick: Normal, Upper Extremity Temperature: Normal, UE 2 Point Discrimination: Normal, Lower Extremity Light Touch: Normal, Lower Extremity Pin Prick: Normal, Lower Extremity Temperature: Normal, LE 2 Point Discrimination: Normal Motor strength exam: RUE: 5, LUE: 5, RLE: 5, LLE: 5 DTR: bicep (R): 2+, bicep (L): 2+, tricep (R): 2+, tricep (L): 2+, knee (R): 2+ , knee (L): 2+, ankle (R): 2+, ankle (L): 2+ Best Eye Response ([place]): (4) open spontaneously Best Motor Response ([place]): (6) obeys commands Best Verbal Response ([place]): (5) oriented Bowen Total: 15 - Psychiatric Psychiatric exam: Present: normal affect, normal mood - Skin Skin exam: Present: warm, dry, intact, normal color. Absent: rash ED Course Vital Signs 06/13/17 14:41 Temperature 98.9 F Pulse Rate 111 H Respiratory 17 Rate Blood Pressure 120/80 O2 Sat by Pulse 96 Oximetry ED Medical Decision Making - Radiology Data Radiology results: report reviewed, image reviewed no infiltrates no opacities no fractures - Medical Decision Making pt is a 51 y/o aaf with hx of low back pain who presents for for left lateral upper back and chest wall pain with deep inspiration. no sob no dizziness no n/ v no numbness. pt denies cough or fever, no chills, pt appears well non toxic , exam: lungs clear bilat all lobes, cv: S1 and S2 no mrg, chest wall tenderness left anterior lateral to deep palpation, no crepitus no stepoff no ecchymosis deformity, shoulder no deformity no ecchymosis no swelling no weakness shoulder drop open can intact no pain , UA: pending pt advises that she cannot wait for results. cxr: nomral heart lungs clear, mild thoracic spondylosis plan. , dc to self with muscle relaxants and nsaids, follow up with primary care doctor in 2-3 days , heart score is 0. Critical care attestation.: If time is entered above; I have spent that time in minutes in the direct care of this critically ill patient, excluding procedure time. ED Disposition Clinical Impression: Chest wall pain Chronic low back pain with left-sided sciatica Qualifiers: Back pain laterality: right Qualified Code(s): M54.42 - Lumbago with sciatica, left side; G89.29 - Other chronic pain; G89.29 - Other chronic pain Disposition: TO HOME OR SELFCARE Is pt being admited?: No Does the pt Need Aspirin: No Condition: Good Instructions: Chest Pain (ED), Chronic Back Pain (ED), Core Strengthening Exercises (GEN) Prescriptions: Cyclobenzaprine [Flexeril] 10 mg PO TID PRN #30 tablet PRN Reason: Muscle Spasm Naproxen 500 mg PO BID PRN #60 tablet PRN Reason: Pain Referrals: PRIMARY CARE, [Primary Care Provider] - 3-5 Days Forms: Work/School Release Form(ED) Time of Disposition: 17:35
[2017-06-13 17:56] LABS: Bilirubin,Urine NEG (Negative); Blood,Urine SM (Negative); Ketones,Urine NEG (Negative); Leukocyte Esterase,Urine NEG (Negative); Mucus,Urine FEW /HPF; Nitrite,Urine NEG (Negative); Protein,Urine <15 mg/dL mg/dL (Negative); Urobilinogen,Urine < 2.0 mg/dL (<2.0)
== END 2017-06-13 17:46 | disposition home or self-care (01) ==
LOC: ED 14:38
DX: M54.42 Lumbago with sciatica, left side (principal); G89.29 Other chronic pain; R07.89 Other chest pain; I10 Essential (primary) hypertension; E11.9 Type 2 diabetes mellitus without complications
CPT/HCPCS: 71020; 81001; 93005; 93010; 96372; 99283; J1885

== ENCOUNTER 2017-08-12 07:53 | Emergency (ER) | payer MEDICARE ==
[2017-08-12 08:08] VITALS: BP 119/76
[2017-08-12 09:01] LABS: Eosinophils # (Auto) 0.1 K/mm3 (0.0-0.4); Hematocrit 41.4 % (30.3-42.9); Hemoglobin 13.5 gm/dl (10.1-14.3); Lymphocytes # (Auto) 1.3 K/mm3 (1.2-5.4); Lymphocytes % (Auto) 29.7 % (13.4-35.0); Mean Corpuscular HGB Conc 33 % (30-34); Mean Corpuscular Hemoglobin 28 pg (28-32); Mean Corpuscular Volume 87 fl (79-97); Monocytes # (Auto) 0.4 K/mm3 (0.0-0.8); Monocytes % (Auto) 8.5 % (0.0-7.3); Platelet Count 153 K/mm3 (140-440); Red Blood Count 4.75 M/mm3 (3.65-5.03); Red Cell Distribution Width 14.2 % (13.2-15.2)
[2017-08-12 09:20] LABS: Alanine Aminotransferase 13 units/L (7-56); Albumin 4.2 g/dL (3.9-5); BUN/Creatinine Ratio 24; Blood Urea Nitrogen 19 mg/dL (7-17); Calcium 8.8 mg/dL (8.4-10.2); Hemolysis Index 56; Lipase 26 units/L (13-60)
[2017-08-12] MEDS ORDERED: MOTRIN PO ONE (15:01)
== END 2017-08-12 13:54 | disposition left against medical advice (07) ==
LOC: ED 07:53
DX: M54.5 Low back pain (principal); R42 Dizziness and giddiness; Z53.21 Procedure and treatment not carried out due to patient leaving prior to being seen by health care provider
CPT/HCPCS: 36415; 80053; 82962; 83690; 85025

== ENCOUNTER 2017-09-29 11:22 | Emergency (ER) | payer MEDICARE ==
[2017-09-29 11:50] VITALS: BP 120/82
[2017-09-29 12:28] LABS: Basophils % (Auto) 0.8 % (0.0-1.8); Eosinophils # (Auto) 0.1 K/mm3 (0.0-0.4); Eosinophils % (Auto) 1.5 % (0.0-4.3); Hematocrit 39.6 % (30.3-42.9); Hemoglobin 13.1 gm/dl (10.1-14.3); Lymphocytes # (Auto) 1.5 K/mm3 (1.2-5.4); Lymphocytes % (Auto) 33.9 % (13.4-35.0); Mean Corpuscular HGB Conc 33 % (30-34); Mean Corpuscular Hemoglobin 29 pg (28-32); Mean Corpuscular Volume 87 fl (79-97); Monocytes # (Auto) 0.4 K/mm3 (0.0-0.8); Platelet Count 163 K/mm3 (140-440); Red Blood Count 4.56 M/mm3 (3.65-5.03); Red Cell Distribution Width 14.4 % (13.2-15.2)
[2017-09-29 12:34] LABS: BUN/Creatinine Ratio 34; Blood Urea Nitrogen 24 mg/dL (7-17); Calcium 9.5 mg/dL (8.4-10.2); Hemolysis Index 9
[2017-09-29 13:43] LABS: Bacteria,Urine 1+ /HPF (Negative); Bilirubin,Urine NEG (Negative); Blood,Urine NEG (Negative); Color,Urine Straw (Yellow); Mucus,Urine FEW /HPF; Protein,Urine <15 mg/dL mg/dL (Negative); Urobilinogen,Urine < 2.0 mg/dL (<2.0)
[2017-09-29] MEDS ORDERED: TORADOL IV ONE (14:51)
[2017-09-29] MEDS ORDERED: NACL 0.9% 1000 ML 1,000 ML IV ONE ×2 (14:51)
--- NOTE | 2017-09-29 14:59 | Emergency Department Report ---
Blank Doc - Documentation Documentation: Patient is a 51-year-old [place] female who is presenting with body aches all over for the past 4 days. Patient states that this may be secondary to neuropathy. Patient is diabetic she states she's taken her insulin up until this morning when she missed one dose. Blood sugar 400. Patient be moved to a treatment room to get IV fluids and pain meds.
--- NOTE | 2017-09-29 16:11 | Emergency Department Report ---
ED General Adult HPI - General Chief complaint: Hyperglycemia Stated complaint: FLU LIKE SYMPTOMS Time Seen by Provider: 09/29/17 14:26 Source: patient Mode of arrival: Ambulatory Limitations: No Limitations - History of Present Illness Initial comments: This is a 51 y.o. female that presents with body aches and elevated blood pressure for 4 days. She have a history of HTN and DM2. Patient reports feeling worse today. She went to PCP at [facility] yesterday and they told her her blood glucose was 493 and they would monitor it. She tried drinking more water and thought that would lower blood glucose yesterday. This morning it was 380 and felt it was best to f/u in the ER. She is concerned with blood glucose because [facility] changed insulin to novolog 70/30 10 units tid and lantus 10 units HS last week. She has been feeling terrible every since. Her [facility] had her on Novolog flex pen 30 units tid and lantus 30 units and that was working for her. She was diagnosed with cyst on left ovary and they haven't done anything for it. She is now feeling pain everywhere and dizzy at times when she lean forward. Not sure if it is related to DM because when sugar was elevated before, she felt like this. Denies visual changes, SOB, fever, and body aches. -: days(s) (4) Location: abdomen (cramping intermittent), lower extremity (RLE feels achy) Severity scale (0 -10): 5 Quality: aching Consistency: intermittent Improves with: medication Worsens with: movement Associated Symptoms: denies: confusion, chest pain, cough, diaphoresis, fever/ chills, headaches, loss of appetite, malaise, nausea/vomiting, rash, seizure, shortness of breath Treatments Prior to Arrival: none - Related Data Home Medications Medication Instructions Recorded Confirmed Last Taken Darunavir/Cobicistat (Nf) 600 mg PO QDAY 04/18/16 08/16/16 Unknown [Prezcobix 800 mg-150 mg Tablet] Dolutegravir Sodium [Tivicay] 50 mg PO QDAY 04/18/16 08/16/16 Unknown Insulin Glargine [Lantus] 20 unit SUB-Q QHS 04/18/16 08/16/16 Unknown Insulin Aspart Prot/Aspart(Nf) 20 units SQ QPM 08/16/16 08/16/16 Unknown [Novolog Mix 70/30] Insulin Aspart Prot/Aspart(Nf) 30 units SQ QAM 08/16/16 08/16/16 Unknown [Novolog Mix 70/30] Previous Rx's Medication Instructions Recorded Last Taken Type Albuterol Sulfate [Proair 90 mcg IH Q4HR PRN #2 aer.pow.ba 08/16/16 Unknown Rx Respiclick] Benzonatate [Tessalon Perles] 100 mg PO Q8HR PRN #30 capsule 08/16/16 Unknown Rx Fluticasone [Flonase] 1 spray NS QDAY #1 bottle 08/16/16 Unknown Rx Ketorolac [Toradol] 10 mg PO Q6H PRN #20 tablet 08/16/16 Unknown Rx Ciprofloxacin HCl [Ciprofloxacin 500 mg PO Q12H #20 tab 03/10/17 Unknown Rx TAB] Ondansetron [Zofran Odt] 4 mg PO Q8HR PRN #14 tab.rapdis 03/10/17 Unknown Rx metroNIDAZOLE [Flagyl CAP] 375 mg PO Q8H #21 capsule 03/10/17 Unknown Rx traMADol [Ultram] 50 mg PO Q6HR PRN #14 tablet 03/10/17 Unknown Rx Cyclobenzaprine [Flexeril] 10 mg PO TID PRN #30 tablet 06/13/17 Unknown Rx Naproxen 500 mg PO BID PRN #60 tablet 06/13/17 Unknown Rx Allergies Allergy/AdvReac Type Severity Reaction Status Date / Time No Known Allergies Allergy Verified 09/29/17 11:42 ED Review of Systems ROS: Stated complaint: FLU LIKE SYMPTOMS Other details as noted in HPI Constitutional: denies: chills, fever Respiratory: denies: cough, shortness of breath, wheezing Cardiovascular: denies: chest pain, palpitations Gastrointestinal: abdominal pain. denies: nausea, vomiting, diarrhea Musculoskeletal: arthralgia (RLE aching with movement) Skin: denies: rash, lesions Neurological: denies: headache, weakness, paresthesias ED Past Medical Hx - Past Medical History Hx Hypertension: No Hx Diabetes: Yes Hx Deep Vein Thrombosis: No Hx Renal Disease: Yes (Stopped diaylsis 1 years ago) Hx HIV: Yes - Surgical History Hx Pacemaker: No Hx Internal Defibrillator: No Hx Cholecystectomy: Yes Additional Surgical History: x 3. PERMA CATH AND REMOVAL. PSEUDO CYSTS REMOVED FROM PANCREAS (2016) - Social History Smoking Status: Never Smoker Substance Use Type: None - Medications Home Medications: Home Medications Medication Instructions Recorded Confirmed Last Taken Type Darunavir/Cobicistat (Nf) 600 mg PO QDAY 04/18/16 08/16/16 Unknown History [Prezcobix 800 mg-150 mg Tablet] Dolutegravir Sodium [Tivicay] 50 mg PO QDAY 04/18/16 08/16/16 Unknown History Insulin Glargine [Lantus] 20 unit SUB-Q QHS 04/18/16 08/16/16 Unknown History Albuterol Sulfate [Proair 90 mcg IH Q4HR PRN #2 aer.pow.ba 08/16/16 Unknown Rx Respiclick] Benzonatate [Tessalon Perles] 100 mg PO Q8HR PRN #30 capsule 08/16/16 Unknown Rx Fluticasone [Flonase] 1 spray NS QDAY #1 bottle 08/16/16 Unknown Rx Insulin Aspart Prot/Aspart(Nf) 20 units SQ QPM 08/16/16 08/16/16 Unknown History [Novolog Mix 70/30] Insulin Aspart Prot/Aspart(Nf) 30 units SQ QAM 08/16/16 08/16/16 Unknown History [Novolog Mix 70/30] Ketorolac [Toradol] 10 mg PO Q6H PRN #20 tablet 08/16/16 Unknown Rx Ciprofloxacin HCl [Ciprofloxacin 500 mg PO Q12H #20 tab 03/10/17 Unknown Rx TAB] Ondansetron [Zofran Odt] 4 mg PO Q8HR PRN #14 tab.rapdis 03/10/17 Unknown Rx metroNIDAZOLE [Flagyl CAP] 375 mg PO Q8H #21 capsule 03/10/17 Unknown Rx traMADol [Ultram] 50 mg PO Q6HR PRN #14 tablet 03/10/17 Unknown Rx Cyclobenzaprine [Flexeril] 10 mg PO TID PRN #30 tablet 06/13/17 Unknown Rx Naproxen 500 mg PO BID PRN #60 tablet 06/13/17 Unknown Rx ED Physical Exam - General Limitations: No Limitations General appearance: alert, in no apparent distress - Respiratory Respiratory exam: Present: normal lung sounds bilaterally. Absent: respiratory distress, wheezes, rales - Cardiovascular Cardiovascular Exam: Present: regular rate, normal rhythm, normal heart sounds. Absent: systolic murmur, diastolic murmur, rubs, gallop - GI/Abdominal GI/Abdominal exam: Present: soft, normal bowel sounds. Absent: tenderness, guarding, rebound, rigid, organomegaly - Extremities Exam Extremities exam: Present: normal inspection, full ROM, normal capillary refill. Absent: pedal edema, joint swelling - Back Exam Back exam: Present: normal inspection, full ROM. Absent: CVA tenderness (R), CVA tenderness (L), muscle spasm, rash noted - Neurological Exam Neurological exam: Present: alert, oriented X3, normal gait - Skin Skin exam: Present: warm, dry, intact, normal color. Absent: rash ED Course Vital Signs 09/29/17 11:42 Temperature 98.3 F Pulse Rate 91 H Respiratory 18 Rate Blood Pressure 120/82 O2 Sat by Pulse 99 Oximetry ED Medical Decision Making - Lab Data Result diagrams: 09/29/17 12:05 09/29/17 12:05 - Medical Decision Making This is a 51 y.o. female that presents with body aches and elevated blood glucose for 4 days. History of DM2 & HIV. Reports PCP changed medication 1 week ago and feeling terrible every since. She went to [facility] yesterday and they said glucose should normalize in a few days and to continue with current medication. Patient was examined by me. Obtained BMP, CBC, UA, & blood gas. Review labs. Glucose 421 on admission. Given Regular insulin 7 units twice, NS 1L bolus x 2 once. Glucose 209 after treatment and reports feeling better. Continue current insulin dose and f/u with Endo or PCP in 24-72 hours. Discussed plan with patient and agreed to plan. No further questions noted by the patient. Discharged home in stable condition. Critical care attestation.: If time is entered above; I have spent that time in minutes in the direct care of this critically ill patient, excluding procedure time. 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 Low blood sugar is often accompanied by symptoms such as tachycardia, sweating, shakiness, intense hunger, or confusion, and must be dealt with promptly by eating a carbohydrate such as apple or drink juice. After self-treatment, blood sugar should be checked if possible. Return to ER or f/u with ER promptly is blood glucose drops below 70 or greater than 150 so that therapy may be adjusted. Eat a carbohydrate snack prior to exercise if blood glucose is less than 100. Follow up with Primary Care Provider at [facility] or [facility] in 24-72 days for management. Referrals: [facility] [Outside] - 3-5 Days [facility] [Outside] - 3-5 Days [facility] [Provider Group] - 3-5 Days Forms: Work/School Release Form(ED) Time of Disposition: 18:50 Print Language: ALBANIAN
== END 2017-09-29 19:07 | disposition home or self-care (01) ==
LOC: ED 11:22
DX: E11.65 Type 2 diabetes mellitus with hyperglycemia (principal); I12.0 Hypertensive chronic kidney disease with stage 5 chronic kidney disease or end stage renal disease; N18.9 Chronic kidney disease, unspecified; E11.22 Type 2 diabetes mellitus with diabetic chronic kidney disease; Z79.4 Long term (current) use of insulin; Z90.49 Acquired absence of other specified parts of digestive tract
CPT/HCPCS: 36415; 80048; 81001; 82805; 82962; 85025; 96361; 96374; 96375; 96376; 99283; J1885; J7030; J1815

== ENCOUNTER 2017-11-25 08:46 | Observation (INO) | payer MEDICARE ==
[2017-11-25] MEDS ORDERED: ASPIRIN PO ONE (08:55)
[2017-11-25] MEDS ORDERED: ANTIVERT PO ONE (09:30)
[2017-11-25] MEDS ORDERED: TYLENOL ONE (09:56)
[2017-11-25 10:01] LABS: Basophils % (Auto) 0.8 % (0.0-1.8); Eosinophils # (Auto) 0.1 K/mm3 (0.0-0.4); Eosinophils % (Auto) 1.1 % (0.0-4.3); Hematocrit 41.2 % (30.3-42.9); Hemoglobin 13.8 gm/dl (10.1-14.3); Lymphocytes % (Auto) 35.4 % (13.4-35.0); Mean Corpuscular HGB Conc 34 % (30-34); Mean Corpuscular Hemoglobin 28 pg (28-32); Mean Corpuscular Volume 84 fl (79-97); Monocytes # (Auto) 0.5 K/mm3 (0.0-0.8); Monocytes % (Auto) 7.9 % (0.0-7.3); Platelet Count 198 K/mm3 (140-440); Red Cell Distribution Width 14.2 % (13.2-15.2)
[2017-11-25 10:17] LABS: BUN/Creatinine Ratio 34; Blood Urea Nitrogen 17 mg/dL (7-17); Calcium 9.6 mg/dL (8.4-10.2); Hemolysis Index 18
--- NOTE | 2017-11-25 10:48 | XRay Report ---
Single view chest: Compared to 06/13/17. History: Chest pain. Findings: Normal cardiomediastinal silhouette. Trachea is midline. No consolidation, pneumothorax or pleural effusion. Impression No acute cardiopulmonary findings.
[2017-11-25 10:49] LABS: Alanine Aminotransferase 19 units/L (7-56); Albumin 4.4 g/dL (3.9-5)
[2017-11-25] MEDS ORDERED: NACL 0.9% 1000 ML 1,000 ML IV ONE (10:49)
[2017-11-25] MEDS ORDERED: MORPHINE IV ONE (10:49)
[2017-11-25 10:58] LABS: Bilirubin,Direct < 0.2 mg/dL (0-0.2)
[2017-11-25] MEDS ORDERED: TYLENOL PO ONE (10:58)
--- NOTE | 2017-11-25 12:31 | Emergency Department Report ---
ED Chest Pain HPI - General Chief Complaint: Chest Pain Stated Complaint: CP/BACK/DIZZY Time Seen by Provider: 11/25/17 10:26 Source: patient Mode of arrival: Ambulatory Limitations: No Limitations - History of Present Illness MD Complaint: chest pain -: days(s) (1) Onset: during rest, awoke with symptoms Pain Location: left chest Pain Radiation: none Severity: mild Severity scale (0 -10): 2 Quality: aching Consistency: intermittent Improves With: nothing Worsens With: exertion re: denies: nausea, vomting, diaphoresis, dyspnea, sense of impending doom Other Symptoms: denies: cough, fever, syncope, rash, acid taste in mouth, leg swelling, palpitations, burping - Related Data Home Medications Medication Instructions Recorded Confirmed Last Taken Darunavir/Cobicistat (Nf) 600 mg PO QDAY 04/18/16 08/16/16 Unknown [Prezcobix 800 mg-150 mg Tablet] Dolutegravir Sodium [Tivicay] 50 mg PO QDAY 04/18/16 08/16/16 Unknown Insulin Glargine [Lantus] 20 unit SUB-Q QHS 04/18/16 08/16/16 Unknown Insulin Aspart Prot/Aspart(Nf) 20 units SQ QPM 08/16/16 08/16/16 Unknown [Novolog Mix 70/30] Insulin Aspart Prot/Aspart(Nf) 30 units SQ QAM 08/16/16 08/16/16 Unknown [Novolog Mix 70/30] Previous Rx's Medication Instructions Recorded Last Taken Type Albuterol Sulfate [Proair 90 mcg IH Q4HR PRN #2 aer.pow.ba 08/16/16 Unknown Rx Respiclick] Benzonatate [Tessalon Perles] 100 mg PO Q8HR PRN #30 capsule 08/16/16 Unknown Rx Fluticasone [Flonase] 1 spray NS QDAY #1 bottle 08/16/16 Unknown Rx Ketorolac [Toradol] 10 mg PO Q6H PRN #20 tablet 08/16/16 Unknown Rx Ciprofloxacin HCl [Ciprofloxacin 500 mg PO Q12H #20 tab 03/10/17 Unknown Rx TAB] Ondansetron [Zofran Odt] 4 mg PO Q8HR PRN #14 tab.rapdis 03/10/17 Unknown Rx metroNIDAZOLE [Flagyl CAP] 375 mg PO Q8H #21 capsule 03/10/17 Unknown Rx traMADol [Ultram] 50 mg PO Q6HR PRN #14 tablet 03/10/17 Unknown Rx Cyclobenzaprine [Flexeril] 10 mg PO TID PRN #30 tablet 06/13/17 Unknown Rx Naproxen 500 mg PO BID PRN #60 tablet 06/13/17 Unknown Rx Allergies Allergy/AdvReac Type Severity Reaction Status Date / Time No Known Allergies Allergy Verified 09/29/17 11:42 Heart Score - HEART Score History: Moderately suspicious EKG: Normal Age: 45-65 Risk factors: 1-2 risk factors Troponin: < normal limit HEART Score: 3 ED Review of Systems ROS: Stated complaint: CP/BACK/DIZZY Other details as noted in HPI Other: GENERAL: No weight change, fatigue, weakness, fever, chills, or night sweats SKIN: No changes in skin or hair, no itching, no rashes, no jaundice HEAD: No trauma, headache, or visual changes CARDIAC: Chest Pain. No new murmur, palpitations, dyspnea on exertion, orthopnea, PND, or edema RESPIRATORY: No shortness of breath, wheeze, cough, sputum production, hemoptysis, pneumonia, asthma, bronchitis, or emphysema GI: No change in appetite, nausea, vomiting, dysphagia, change in bowel frequency, diarrhea, constipation, bleeding, hematemesis, melena, hematochezia, or abdominal pain URINARY: No frequency, urgency, polyuria, dysuria, hematuria, or incontinence MUSCULOSKELETAL: No muscle weakness, joint stiffness, decrease in range of motion, redness, swelling NEUROLOGIC: No loss of sensation, numbness, tingling, tremors, weakness, paralysis, seizures HEMATOLOGIC: No anemia, easy bruising, bleeding, petechiae, or purpura ED Past Medical Hx - Past Medical History Hx Hypertension: No Hx Diabetes: Yes Hx Deep Vein Thrombosis: No Hx Renal Disease: Yes (Stopped diaylsis 1 years ago) Hx HIV: Yes - Surgical History Hx Pacemaker: No Hx Internal Defibrillator: No Hx Cholecystectomy: Yes Additional Surgical History: x 3. PERMA CATH AND REMOVAL. PSEUDO CYSTS REMOVED FROM PANCREAS (2016) - Social History Smoking Status: Current Every Day Smoker Substance Use Type: None - Medications Home Medications: Home Medications Medication Instructions Recorded Confirmed Last Taken Type Darunavir/Cobicistat (Nf) 600 mg PO QDAY 04/18/16 08/16/16 Unknown History [Prezcobix 800 mg-150 mg Tablet] Dolutegravir Sodium [Tivicay] 50 mg PO QDAY 04/18/16 08/16/16 Unknown History Insulin Glargine [Lantus] 20 unit SUB-Q QHS 04/18/16 08/16/16 Unknown History Albuterol Sulfate [Proair 90 mcg IH Q4HR PRN #2 aer.pow.ba 08/16/16 Unknown Rx Respiclick] Benzonatate [Tessalon Perles] 100 mg PO Q8HR PRN #30 capsule 08/16/16 Unknown Rx Fluticasone [Flonase] 1 spray NS QDAY #1 bottle 08/16/16 Unknown Rx Insulin Aspart Prot/Aspart(Nf) 20 units SQ QPM 08/16/16 08/16/16 Unknown History [Novolog Mix 70/30] Insulin Aspart Prot/Aspart(Nf) 30 units SQ QAM 08/16/16 08/16/16 Unknown History [Novolog Mix 70/30] Ketorolac [Toradol] 10 mg PO Q6H PRN #20 tablet 08/16/16 Unknown Rx Ciprofloxacin HCl [Ciprofloxacin 500 mg PO Q12H #20 tab 03/10/17 Unknown Rx TAB] Ondansetron [Zofran Odt] 4 mg PO Q8HR PRN #14 tab.rapdis 03/10/17 Unknown Rx metroNIDAZOLE [Flagyl CAP] 375 mg PO Q8H #21 capsule 03/10/17 Unknown Rx traMADol [Ultram] 50 mg PO Q6HR PRN #14 tablet 03/10/17 Unknown Rx Cyclobenzaprine [Flexeril] 10 mg PO TID PRN #30 tablet 06/13/17 Unknown Rx Naproxen 500 mg PO BID PRN #60 tablet 06/13/17 Unknown Rx ED Physical Exam - General Limitations: No Limitations - Other Other exam information: GENERAL: Patient in no acute distress HEAD: Normocephalic, atraumatic HEART: Regular rate and rhythm, no murmur, S1-S2 are auscultated, pulses are symmetric LUNGS: bilateral breath sounds. No wheezing, rales, rhonchi ABDOMEN: Normal bowel sounds, no tenderness, no rebound, no guarding, no masses , no CVA tenderness MUSCULOSKELETAL: Normal joint range of motion, no redness, no swelling, no tenderness NEUROLOGIC: GCS 15, Alert and Oriented x3, Cranial nerves intact, normal sensation, normal strength, normal gait, no cerebellar deficit SKIN: Skin is warm and dry, no wounds, no rashes ED Course Vital Signs 11/25/17 11/25/17 11/25/17 08:49 09:38 09:46 Temperature 98.3 F Pulse Rate 90 81 77 Respiratory 16 14 18 Rate Blood Pressure 123/79 121/79 O2 Sat by Pulse 100 96 Oximetry 11/25/17 11/25/17 11/25/17 10:00 10:16 10:30 Temperature Pulse Rate 83 89 87 Respiratory 20 19 20 Rate Blood Pressure 126/88 126/88 123/83 O2 Sat by Pulse 97 97 95 Oximetry 11/25/17 11/25/17 11/25/17 10:46 11:00 11:16 Temperature Pulse Rate 79 82 83 Respiratory 15 19 18 Rate Blood Pressure 123/83 130/83 130/83 O2 Sat by Pulse 95 95 93 Oximetry ERVIN score - Ervin Score Age > 65: (0) No Aspirin use within the Past 7 Days: (0) No 3 or more CAD Risk Factors: (0) No 2 or more Angina events in past 24 hrs: (1) Yes Known CAD with more than 50% Stenosis: (0) No Elevated Cardiac Markers: (0) No ST Deviation Greater than 0.5mm: (0) No ERVIN Score: 1 ED Medical Decision Making - Lab Data Result diagrams: 11/25/17 09:19 11/25/17 09:19 Laboratory Results - last 24 hr 11/25/17 11/25/17 11/25/17 09:19 09:19 09:27 WBC 5.8 RBC 4.90 Hgb 13.8 Hct 41.2 MCV 84 MCH 28 MCHC 34 RDW 14.2 Plt Count 198 Lymph % (Auto) 35.4 H Todd % (Auto) 7.9 H Eos % (Auto) 1.1 Baso % (Auto) 0.8 Lymph # 2.0 Todd # 0.5 Eos # 0.1 Baso # 0.0 Seg Neutrophils % 54.8 Seg Neutrophils # 3.2 D-Dimer Sodium 137 Potassium 4.4 Chloride 97.0 L Carbon Dioxide 24 Anion Gap 20 BUN 17 Creatinine 0.5 L Estimated GFR > 60 BUN/Creatinine Ratio 34 Glucose 293 H Hemoglobin A1c Calcium 9.6 Total Bilirubin 0.20 Direct Bilirubin < 0.2 Indirect Bilirubin 0.0 AST 12 ALT 19 Alkaline Phosphatase 79 Troponin T < 0.010 Total Protein 8.0 Albumin 4.4 Albumin/Globulin Ratio 1.2 11/25/17 11/25/17 09:27 10:45 WBC RBC Hgb Hct MCV MCH MCHC RDW Plt Count Lymph % (Auto) Todd % (Auto) Eos % (Auto) Baso % (Auto) Lymph # Todd # Eos # Baso # Seg Neutrophils % Seg Neutrophils # D-Dimer < 135.00 Sodium Potassium Chloride Carbon Dioxide Anion Gap BUN Creatinine Estimated GFR BUN/Creatinine Ratio Glucose Hemoglobin A1c 13.2 H Calcium Total Bilirubin Direct Bilirubin Indirect Bilirubin AST ALT Alkaline Phosphatase Troponin T Total Protein Albumin Albumin/Globulin Ratio - EKG Data When compared to previous EKG there are: no significant change - Radiology Data Radiology results: report reviewed - Medical Decision Making Patient comfortable. Updated with results. Plan admit for further evaluation. Hospitalists accepts admission. Critical care attestation.: If time is entered above; I have spent that time in minutes in the direct care of this critically ill patient, excluding procedure time. ED Disposition Clinical Impression: Chest pain Qualifiers: Chest pain type: unspecified Qualified Code(s): R07.9 - Chest pain, unspecified Disposition: OP ADMIT IP TO THIS HOSP Is pt being admited?: Yes Does the pt Need Aspirin: Yes Condition: Stable Instructions: Chest Pain (ED) Referrals: PARUL DESIR MD [Primary Care Provider] - 3-5 Days Time of Disposition: 12:35
[2017-11-25] MEDS: ASPIRIN PO SCH (13:11)
--- NOTE | 2017-11-25 14:52 | History and Physical Report ---
History of Present Illness Date of examination: 11/25/17 Date of admission: 11/25/2017 Chief complaint: Chief complaint: Left-sided chest pain since a.m. History of present illness: History of Present Illness: 51-year-old -Liber[place] female with history of insulin-dependent diabetes and HIV comes in for left-sided chest pain since morning. Patient woke up with left-sided chest pain. Intermittent in nature. Dull in character. No diaphoresis. Nonradiating and no palpitations. No shortness of breath. Pain is about 5 on a scale of 1-10. No recent travel. No fever or chills. Past Medical History Hx Diabetes: Yes Hx Renal Disease: Yes (Stopped diaylsis 1 years ago) Hx HIV: Yes Surgical History Hx Pacemaker: No Hx Internal Defibrillator: No Hx Cholecystectomy: Yes Additional Surgical History: x 3. PERMA CATH AND REMOVAL. PSEUDO CYSTS REMOVED FROM PANCREAS (2016) Social History Smoking Status: Current Every Day Smoker Substance Use Type: None Family history Hypertension - Medications Home Medications: Home Medications Medication Instructions Recorded Confirmed Last Taken Type Darunavir/Cobicistat (Nf) 600 mg PO QDAY 04/18/16 08/16/16 Unknown History [Prezcobix 800 mg-150 mg Tablet] Dolutegravir Sodium [Tivicay] 50 mg PO QDAY 04/18/16 08/16/16 Unknown History Insulin Glargine [Lantus] 20 unit SUB-Q QHS 04/18/16 08/16/16 Unknown History Albuterol Sulfate [Proair 90 mcg IH Q4HR PRN #2 aer.pow.ba 08/16/16 Unknown Rx Respiclick] Benzonatate [Tessalon Perles] 100 mg PO Q8HR PRN #30 capsule 08/16/16 Unknown Rx Fluticasone [Flonase] 1 spray NS QDAY #1 bottle 08/16/16 Unknown Rx Insulin Aspart Prot/Aspart(Nf) 20 units SQ QPM 08/16/16 08/16/16 Unknown History [Novolog Mix 70/30] Insulin Aspart Prot/Aspart(Nf) 30 units SQ QAM 08/16/16 08/16/16 Unknown History [Novolog Mix 70/30] Ketorolac [Toradol] 10 mg PO Q6H PRN #20 tablet 08/16/16 Unknown Rx Ciprofloxacin HCl [Ciprofloxacin 500 mg PO Q12H #20 tab 03/10/17 Unknown Rx TAB] Ondansetron [Zofran Odt] 4 mg PO Q8HR PRN #14 tab.rapdis 03/10/17 Unknown Rx metroNIDAZOLE [Flagyl CAP] 375 mg PO Q8H #21 capsule 03/10/17 Unknown Rx traMADol [Ultram] 50 mg PO Q6HR PRN #14 tablet 03/10/17 Unknown Rx Cyclobenzaprine [Flexeril] 10 mg PO TID PRN #30 tablet 06/13/17 Unknown Rx Naproxen 500 mg PO BID PRN #60 tablet 06/13/17 Unknown Rx Review of Systems ROS: Stated complaint: CP/BACK/DIZZY Other details as noted in HPI Other: GENERAL: No weight change, fatigue, weakness, fever, chills, or night sweats SKIN: No changes in skin or hair, no itching, no rashes, no jaundice HEAD: No trauma, headache, or visual changes CARDIAC: Chest Pain. No new murmur, palpitations, dyspnea on exertion, orthopnea, PND, or edema RESPIRATORY: No shortness of breath, wheeze, cough, sputum production, hemoptysis, pneumonia, asthma, bronchitis, or emphysema GI: No change in appetite, nausea, vomiting, dysphagia, change in bowel frequency, diarrhea, constipation, bleeding, hematemesis, melena, hematochezia, or abdominal pain URINARY: No frequency, urgency, polyuria, dysuria, hematuria, or incontinence MUSCULOSKELETAL: No muscle weakness, joint stiffness, decrease in range of motion, redness, swelling NEUROLOGIC: No loss of sensation, numbness, tingling, tremors, weakness, paralysis, seizures HEMATOLOGIC: No anemia, easy bruising, bleeding, petechiae, or purpura Medications and Allergies Allergies Allergy/AdvReac Type Severity Reaction Status Date / Time No Known Allergies Allergy Verified 09/29/17 11:42 Home Medications Medication Instructions Recorded Confirmed Last Taken Type Darunavir/Cobicistat (Nf) 600 mg PO QDAY 04/18/16 11/25/17 Unknown History [Prezcobix 800 mg-150 mg Tablet] Dolutegravir Sodium [Tivicay] 50 mg PO QDAY 04/18/16 11/25/17 Unknown History Insulin Glargine [Lantus] 30 unit SUB-Q QHS 04/18/16 11/25/17 Unknown History Insulin Aspart Prot/Aspart(Nf) 30 units SQ TID 08/16/16 11/25/17 Unknown History [Novolog Mix 70/30] Gabapentin [Neurontin] 300 mg PO Q8HR 11/25/17 11/25/17 Unknown History Multivit-Min/FA/Lycopen/Lutein 1 each PO DAILY 11/25/17 11/25/17 Unknown History [Adults 50+ Multivitamin Tablet] Active Meds: Active Medications Aspirin (Aspirin) 325 mg PO QDAY FREYA Last Admin: 11/25/17 13:11 Dose: 325 mg Exam - Physical Exam Narrative exam: Lying in bed comfortably - Constitutional Vitals: Temp Pulse Resp BP Pulse Ox 98.3 F 83 18 130/83 93 11/25/17 08:49 11/25/17 11:16 11/25/17 11:16 11/25/17 11:16 11/25/17 11:16 General appearance: Present: no acute distress, well-nourished - EENT Eyes: Present: PERRL ENT: hearing intact, clear oral mucosa - Neck Neck: Present: supple, normal ROM - Respiratory Respiratory effort: normal Respiratory: bilateral: CTA - Cardiovascular Heart rate: 76 Rhythm: regular Heart Sounds: Present: S1 & S2. Absent: rub, click - Extremities Extremities: no ischemia, pulses intact, pulses symmetrical, No edema Peripheral Pulses: within normal limits - Abdominal General gastrointestinal: Present: soft, non-tender, non-distended, normal bowel sounds Female genitourinary: Present: normal - Rectal Rectal Exam: deferred - Integumentary Integumentary: Present: clear, warm, dry - Musculoskeletal Musculoskeletal: gait normal, strength equal bilaterally - Psychiatric Psychiatric: appropriate mood/affect, intact judgment & insight - Neurologic Neurologic: CNII-XII intact, moves all extremities - Allied Health Allied health notes reviewed: nursing, case management Results - Labs CBC & Chem 7: 11/25/17 09:19 11/25/17 09:19 Labs: Laboratory Last Values WBC 5.8 K/mm3 (4.5-11.0) 11/25/17 09:19 RBC 4.90 M/mm3 (3.65-5.03) 11/25/17 09:19 Hgb 13.8 gm/dl (10.1-14.3) 11/25/17 09:19 Hct 41.2 % (30.3-42.9) 11/25/17 09:19 MCV 84 fl (79-97) 11/25/17 09:19 MCH 28 pg (28-32) 11/25/17 09:19 MCHC 34 % (30-34) 11/25/17 09:19 RDW 14.2 % (13.2-15.2) 11/25/17 09:19 Plt Count 198 K/mm3 (140-440) 11/25/17 09:19 Lymph % (Auto) 35.4 % (13.4-35.0) H 11/25/17 09:19 [place] % (Auto) 7.9 % (0.0-7.3) H 11/25/17 09:19 Eos % (Auto) 1.1 % (0.0-4.3) 11/25/17 09:19 Baso % (Auto) 0.8 % (0.0-1.8) 11/25/17 09:19 Lymph # 2.0 K/mm3 (1.2-5.4) 11/25/17 09:19 [place] # 0.5 K/mm3 (0.0-0.8) 11/25/17 09:19 Eos # 0.1 K/mm3 (0.0-0.4) 11/25/17 09:19 Baso # 0.0 K/mm3 (0.0-0.1) 11/25/17 09:19 Seg Neutrophils % 54.8 % (40.0-70.0) 11/25/17 09:19 Seg Neutrophils # 3.2 K/mm3 (1.8-7.7) 11/25/17 09:19 D-Dimer < 135.00 ng/mlDDU (0-234) 11/25/17 10:45 Sodium 137 mmol/L (137-145) 11/25/17 09:19 Potassium 4.4 mmol/L (3.6-5.0) 11/25/17 09:19 Chloride 97.0 mmol/L (98-107) L 11/25/17 09:19 Carbon Dioxide 24 mmol/L (22-30) 11/25/17 09:19 Anion Gap 20 mmol/L 11/25/17 09:19 BUN 17 mg/dL (7-17) 11/25/17 09:19 Creatinine 0.5 mg/dL (0.7-1.2) L 11/25/17 09:19 Estimated GFR > 60 ml/min 11/25/17 09:19 BUN/Creatinine Ratio 34 % 11/25/17 09:19 Glucose 293 mg/dL (65-100) H 11/25/17 09:19 Hemoglobin A1c 13.2 % (4-6) H 11/25/17 09:27 Calcium 9.6 mg/dL (8.4-10.2) 11/25/17 09:19 Total Bilirubin 0.20 mg/dL (0.1-1.2) 11/25/17 09:27 Direct Bilirubin < 0.2 mg/dL (0-0.2) 11/25/17 09:27 Indirect Bilirubin 0.0 mg/dL 11/25/17 09:27 AST 12 units/L (5-40) 11/25/17 09:27 ALT 19 units/L (7-56) 11/25/17 09:27 Alkaline Phosphatase 79 units/L (35-129) 11/25/17 09:27 Troponin T < 0.010 ng/mL (0.00-0.029) 11/25/17 09:19 Total Protein 8.0 g/dL (6.3-8.2) 11/25/17 09:27 Albumin 4.4 g/dL (3.9-5) 11/25/17 09:27 Albumin/Globulin Ratio 1.2 % 11/25/17 09:27 Short CBC 11/25/17 Range/Units 09:19 WBC 5.8 (4.5-11.0) K/mm3 Hgb 13.8 (10.1-14.3) gm/dl Hct 41.2 (30.3-42.9) % Plt Count 198 (140-440) K/mm3 BMP 11/25/17 09:19 Sodium 137 Potassium 4.4 Chloride 97.0 L Carbon Dioxide 24 BUN 17 Creatinine 0.5 L Glucose 293 H Calcium 9.6 Cardiac Enzymes 11/25/17 Range/Units 09:19 Troponin T < 0.010 (0.00-0.029) ng/mL Liver Function 04/27/18 Range/Units 09:27 Total Bilirubin 0.20 (0.1-1.2) mg/dL Direct Bilirubin < 0.2 (0-0.2) mg/dL AST 12 (5-40) units/L ALT 19 (7-56) units/L Alkaline Phosphatase 79 (35-129) units/L Albumin 4.4 (3.9-5) g/dL - Imaging and Cardiology EKG: report reviewed (normal sinus rhythm with no acute ST-T wave changes) Imaging and Cardiology: Chest x-ray Findings: Normal cardiomediastinal silhouette. Trachea is midline. No consolidation, pneumothorax or pleural effusion. Impression No acute cardiopulmonary findings. Assessment and Plan Advance Directives: Yes (full code) VTE prophylaxis?: Chemical (full code) Plan of care discussed with patient/family: Yes - Patient Problems (1) Acute coronary syndrome Current Visit: Yes Status: Acute Plan to address problem: We'll get serial cardiac enzymes and Lexiscan Costochondritis ruled out. No chest wall tenderness GERD a possibility (2) Insulin dependent diabetes mellitus Current Visit: Yes Status: Chronic Plan to address problem: check hemoglobin A1c Continue home insulin and coverage (3) HIV (human immunodeficiency virus infection) Current Visit: Yes Status: Chronic Plan to address problem: Continue antiretrovirals (4) Allergic rhinitis Current Visit: Yes Status: Acute Qualifiers: Allergic rhinitis trigger: pollen Plan to address problem: Continue Flonase (5) DVT prophylaxis Current Visit: Yes Status: Acute Plan to address problem: Continue heparin
[2017-11-25] MEDS ORDERED: ZOFRAN IV PRN ×2 (18:11→22:36)
[2017-11-25] MEDS ORDERED: TYLENOL PO PRN ×2 (18:11→22:36)
[2017-11-25] MEDS ORDERED: SODIUM CHLORIDE FLUSH SYRINGE 10 ML IV PRN ×2 (18:11→22:36)
[2017-11-25] MEDS ORDERED: SODIUM CHLORIDE FLUSH SYRINGE 10 ML IV SCH (22:00)
[2017-11-25] MEDS ORDERED: PERCOCET 5/325 PO ONE (22:20)
[2017-11-25] MEDS ORDERED: MORPHINE IV PRN (22:21)
[2017-11-25] MEDS ORDERED: AMBIEN PO PRN (22:36)
[2017-11-25] MEDS ORDERED: DILAUDID IV PRN (22:36)
[2017-11-25] MEDS ORDERED: PERCOCET 5/325 PO PRN (22:36)
[2017-11-25] MEDS: NEURONTIN PO SCH (23:07)
[2017-11-25] MEDS: HEPARIN SUB-Q SCH (23:07)
[2017-11-26] MEDS: NEURONTIN PO SCH (05:20)
[2017-11-26 05:54] LABS: Alanine Aminotransferase 15 units/L (7-56); BUN/Creatinine Ratio 32; Blood Urea Nitrogen 16 mg/dL (7-17); Calcium 9.1 mg/dL (8.4-10.2); Hemolysis Index 16
[2017-11-26] MEDS: HumaLOG SUB-Q SCH ×2 (07:46→12:31)
[2017-11-26] MEDS: HumuLIN R IV SCH ×2 (07:47→14:44)
[2017-11-26] MEDS ORDERED: LEXISCAN IV ONE ×2 (08:23→08:28)
[2017-11-26] MEDS: HEPARIN SUB-Q SCH (09:00)
[2017-11-26] MEDS ORDERED: SODIUM CHLORIDE FLUSH SYRINGE 10 ML IV SCH (10:00)
[2017-11-26] MEDS ORDERED: DARUNAVIR PO SCH (10:00)
[2017-11-26] MEDS ORDERED: PEPCID PO SCH (10:00)
[2017-11-26] MEDS ORDERED: NON-FORMULARY (Dolutegravir Sodium [Tivicay] 50 MG) PO SCH (10:00)
[2017-11-26] MEDS ORDERED: COBICISTAT PO SCH (10:00)
[2017-11-26 11:04] VITALS: BP 115/71
--- NOTE | 2017-11-26 11:47 | Discharge Summary ---
Providers - Providers Date of Admission: 11/25/17 18:12 Attending physician: LETTY STAPLES MD Primary care physician: PARUL DESIR Hospitalization Reason for admission: Chest pain Condition: Stable Pertinent studies: Cardiac stress test is normal Hospital course: 51-year-old -[place] female with history of insulin-dependent diabetes and HIV comes in for left-sided chest pain since morning. Patient woke up with left-sided chest pain. Intermittent in nature. Dull in character. No diaphoresis. Nonradiating and no palpitations. No shortness of breath. Pain is about 5 on a scale of 1-10. No recent travel. No fever or chills. Patient admitted to the floor cardiac enzymes, and stress test were negative. Chest pain subsided. patient has follow up with her PCP, endocrinology and patient said she will follow there. patient was hemodynamically stable at the time of discharge. Patient's questions and concerns were addressed at the bedside. Disposition: DC- TO HOME OR SELFCARE Time spent for discharge: 31 minutes - Discharge Diagnoses (1) Chest pain Status: Acute Qualifiers: Chest pain type: unspecified Qualified Code(s): R07.9 - Chest pain, unspecified (2) HIV (human immunodeficiency virus infection) Status: Chronic (3) Insulin dependent diabetes mellitus Status: Chronic (4) AIDS Status: Chronic (5) HTN (hypertension), benign Status: Chronic (6) Diabetes mellitus type 1, uncontrolled, with complications Status: Chronic Core Measure Documentation - Palliative Care Palliative Care/ Comfort Measures: Not Applicable - Core Measures Any of the following diagnoses?: none Exam - Physical Exam Narrative exam: Not in cardiopulmonary distress. The patient appeared well nourished and normally developed. Vital signs as documented. Head exam is unremarkable. No scleral icterus . Neck is without jugular venous distension, thyromegaly, or carotid bruits. Lungs are clear to auscultation. Cardiac exam reveals regular rate and Rhythm. First and second heart sounds normal. No murmurs, rubs or gallops. Abdominal exam reveals normal bowel sounds, no masses, no organomegaly and no aortic enlargement. Extremities are nonedematous and both femoral and pedal pulses are normal. INPUT OUTPUT CLERK: Alert and oriented 3. No focal weakness. - Constitutional Vitals: Temp Pulse Resp BP Pulse Ox 98.5 F 99 H 22 115/71 97 11/25/17 23:32 11/26/17 09:32 11/25/17 23:33 11/26/17 09:32 11/25/17 23:32 Plan Activity: no restrictions Weight Bearing Status: Full Weight Bearing Diet: low salt, diabetic Follow up with: PARUL DESIR MD [Primary Care Provider] - 7 Days Forms: Work/School Release Form
[2017-11-26] MEDS: ASPIRIN PO SCH (12:30)
[2017-11-26] MEDS ORDERED: HumuLIN R SUB-Q SCH (12:30)
[2017-11-26] MEDS ORDERED: LANTUS SUB-Q SCH (22:00)
--- NOTE | 2017-11-29 10:30 | Query- Chest Pain ---
Tristian Rebollar Alexander Date:____11/29/17 Retanned Leather Roller/CDS:____Melba / Shaheed Phone#: [phone] Exercise your independent professional judgment when responding to query. Questions asked do not imply a particular answer is desired or expected. We greatly appreciate your clarification on this issue. Clinical Documentation States: 51 year old female was admitted on 11/25/17 The discharge summary (Dr. Munoz) states " 51-year-old -Iraqi female with history of insulin-dependent diabetes and HIV comes in for left- sided chest pain since morning. Discharge Diagnoses (1) Chest pain " Please document the etiology of Chest Pain: [ ] Myocardial Infarction [ ] Pneumonia [ ] Mediastinitis [ ] Costochondritis [ ] Pulmonary Embolism [ ] Coronary Artery Disease [ ] GERD [ ] Other: [ ] Comment/Explanation: Present on Admission: [ ] Yes (Y) [ ] Clinically undeterminable (W) [ ] No(N) Please document response in your Progress Notes and/or Discharge Summary and indicate if the condition was present on admission. HARLEYD
--- NOTE | 2017-11-29 10:35 | Query- Diabetes Complications ---
Deamilka Rebollar Alexander Date: 11/29/17 De Alcoholizer/CDS: Melba / Shaheed Phone#:___[phone] Exercise your independent professional judgment when responding to query. Questions asked do not imply a particular answer is desired or expected. We greatly appreciate your clarification on this issue. Clinical Documentation States: 51 year old female was admitted on 11/25/17 The Discharge summary (Dr. Munoz) states " 51-year-old -Tuval[place] female with history of insulin-dependent diabetes and HIV comes in for left-sided chest pain since morning. - Discharge Diagnoses (3) Insulin dependent diabetes mellitus (6) Diabetes mellitus type 1, uncontrolled, with complications " Clinical Findings Show: Glucose: 439 (11/26/17 5:00) Medications: IV Insulin Please clarify if this is: [ ] Diabetes with Hyperosmolarity [ ] Diabetic Ketoacidosis (DKA) [ ] Not applicable [ ] Other (Please specify): Please specify type as: [ ] Type I or Juvenile [ ] Out of control [ ] Inadequately controlled [ ] Poorly controlled [ ] Type II [ ] Out of control [ ] Inadequately controlled [ ] Poorly controlled Present on Admission: [ ] Yes (Y) [ ] Clinically undeterminable (W) [ ] No (N) Please also document response in your Progress Notes and/or Discharge Summary and indicate if the condition was present on admission. MTDD
--- NOTE | 2017-11-29 22:57 | Treadmill Report ---
THALLIUM STRESS TEST LEFT VENTRICLE: Left ventricular chamber size is within normal. Perfusion study demonstrates homogeneous uptake of the tracer in all segments, no significant perfusion defects identified. Gated analysis demonstrates normal left ventricular systolic function, ejection fraction 67%. CONCLUSION: Normal myocardial perfusion study. [facility]# [id number] CA/NTS
== END 2017-11-26 13:50 | disposition home or self-care (01) ==
LOC: ED 08:46 → 4A 18:12 → INTOOBSV 18:12 → 4A 19:49
PROVIDERS: ADMIT Internal Medicine; ATTEND Internal Medicine
DX: I24.9 Acute ischemic heart disease, unspecified (principal); B20 Human immunodeficiency virus [HIV] disease; I10 Essential (primary) hypertension; J30.9 Allergic rhinitis, unspecified; N28.9 Disorder of kidney and ureter, unspecified; E10.65 Type 1 diabetes mellitus with hyperglycemia; F17.200 Nicotine dependence, unspecified, uncomplicated; Z82.49 Family history of ischemic heart disease and other diseases of the circulatory system
CPT/HCPCS: 36415; 71045; 78452; 80048; 80053; 80074; 82962; 83036; 84484; 85025; 85379; 93005; 93010; 93017; 96361; 96372; 96374; 99285; A9502; G0378; J1644; J2270; J2785; J7030; J1815

== ENCOUNTER 2018-05-08 08:45 | Emergency (ER) | payer MEDICARE ==
[2018-05-08 09:20] LABS: Basophils % (Auto) 0.7 % (0.0-1.8); Eosinophils # (Auto) 0.1 K/mm3 (0.0-0.4); Eosinophils % (Auto) 1.9 % (0.0-4.3); Hematocrit 40.7 % (30.3-42.9); Hemoglobin 13.4 gm/dl (10.1-14.3); Lymphocytes # (Auto) 1.2 K/mm3 (1.2-5.4); Lymphocytes % (Auto) 29.9 % (13.4-35.0); Mean Corpuscular HGB Conc 33 % (30-34); Mean Corpuscular Hemoglobin 29 pg (28-32); Mean Corpuscular Volume 89 fl (79-97); Monocytes # (Auto) 0.3 K/mm3 (0.0-0.8); Monocytes % (Auto) 6.4 % (0.0-7.3); Platelet Count 174 K/mm3 (140-440); Red Blood Count 4.55 M/mm3 (3.65-5.03); Red Cell Distribution Width 14.3 % (13.2-15.2)
[2018-05-08 09:33] LABS: BUN/Creatinine Ratio 36; Blood Urea Nitrogen 25 mg/dL (7-17); Calcium 8.9 mg/dL (8.4-10.2); Hemolysis Index 117
[2018-05-08 10:24] LABS: Bilirubin,Urine NEG (Negative); Blood,Urine SM (Negative); Color,Urine Straw (Yellow); Mucus,Urine FEW /HPF; Protein,Urine <15 mg/dL mg/dL (Negative); Urobilinogen,Urine < 2.0 mg/dL (<2.0); WBC,Urine < 1.0 /HPF (0.0-6.0)
--- NOTE | 2018-05-08 11:16 | Emergency Department Report ---
ED Dizziness HPI - General Chief Complaint: Dizziness Stated Complaint: BACK PAIN/LIGHT HEAD Time Seen by Provider: 05/08/18 10:34 Source: patient Mode of arrival: Ambulatory Limitations: No Limitations - History of Present Illness Initial Comments: Patient presents to the emergency department with a chief complaint of dizziness and low back pain that started yesterday. Patient states that when she turns her head quickly or stands up she gets dizzy. Patient denies any focal weakness, facial droop, or numbness. Patient also complains of lower back pain that started yesterday as well. Patient is is not aware of any sentinel event that would've caused her back pain. She denies any recent new activity or trauma. -: Sudden Timing: sudden onset Description: "room spinning" History of Same: No History of Trauma: No Severity: moderate Improves With: remaining still Worsens With: movement Associated Symptoms: denies other symptoms - Related Data Home Medications Medication Instructions Recorded Confirmed Last Taken Darunavir/Cobicistat (Nf) 600 mg PO QDAY 04/18/16 02/07/18 02/06/18 [Prezcobix 800 mg-150 mg (Nf)] Dolutegravir Sodium [Tivicay] 50 mg PO QDAY 04/18/16 02/07/18 02/06/18 Gabapentin [Neurontin] 300 mg PO TID 11/25/17 02/07/18 02/06/18 Multivit-Min/FA/Lycopen/Lutein 1 each PO DAILY 11/25/17 02/07/18 02/06/18 [Adults 50 Plus Multivitamin Tb] Previous Rx's Medication Instructions Recorded Last Taken Type Amoxicillin/K Clav Tab [Augmentin 1 tab PO Q12HR #14 tab 01/12/18 02/06/18 Rx 875MG TAB] Docusate Sodium [Colace CAP] 100 mg PO BID #10 capsule 01/12/18 02/06/18 Rx Pantoprazole [Protonix TAB] 40 mg PO DAILY #30 tablet 01/12/18 02/06/18 Rx Benzocaine/Menth/Cetylpyrd 1 each MM Q2HR PRN #60 packet 02/08/18 Unknown Rx [Cepacol X Strength] HYDROcodone/APAP 5-325 [[place] 1 each PO Q6H PRN #18 tablet 02/08/18 Unknown Rx 5-325 mg TAB] Hypromellose [Isopto Tears 0.5%] 2 drops OU Q8H PRN bottle 02/08/18 Unknown Rx Insulin Aspart [NovoLOG Flexpen] 16 units SUB-Q AC #3 insuln.pen 02/08/18 Unknown Rx Insulin Glargine [Lantus VIAL] 30 unit SUB-Q QHS #300 units 02/08/18 Unknown Rx Lispro Insulin [Humalog] 0 unit SUB-Q ACHS units 02/08/18 Unknown Rx Meclizine [Antivert] 25 mg PO TID PRN #30 tablet 05/08/18 Unknown Rx traMADol [Ultram] 50 mg PO Q6HR PRN #24 tablet 05/08/18 Unknown Rx Allergies Allergy/AdvReac Type Severity Reaction Status Date / Time No Known Allergies Allergy Verified 05/08/18 08:51 ED Review of Systems ROS: Stated complaint: BACK PAIN/LIGHT HEAD Other details as noted in HPI Comment: All other systems reviewed and negative Constitutional: denies: chills, fever Eyes: denies: eye pain, eye discharge, vision change ENT: denies: ear pain, throat pain Respiratory: denies: cough, shortness of breath, wheezing Cardiovascular: denies: chest pain, palpitations Endocrine: no symptoms reported Gastrointestinal: denies: abdominal pain, nausea, diarrhea Genitourinary: denies: urgency, dysuria, discharge Musculoskeletal: back pain. denies: joint swelling, arthralgia Skin: denies: rash, lesions Neurological: vertigo. denies: headache, weakness, paresthesias Psychiatric: denies: anxiety, depression Hematological/Lymphatic: denies: easy bleeding, easy bruising ED Past Medical Hx - Past Medical History Hx Hypertension: Yes (resolved ) Hx Heart Attack/AMI: No Hx Diabetes: Yes Hx Deep Vein Thrombosis: No Hx Liver Disease: No Hx Renal Disease: Yes (ARF 1 year ago, dialysis for 3months ) Hx Sickle Cell Disease: No Hx Seizures: No Hx Asthma: No Hx COPD: No Hx HIV: Yes - Surgical History Hx Pacemaker: No Hx Internal Defibrillator: No Hx Cholecystectomy: Yes Hx Appendectomy: Yes Additional Surgical History: x 3. PERMA CATH AND REMOVAL. PSEUDO CYSTS REMOVED FROM PANCREAS (2016) - Social History Smoking Status: Current Every Day Smoker - Medications Home Medications: Home Medications Medication Instructions Recorded Confirmed Last Taken Type Darunavir/Cobicistat (Nf) 600 mg PO QDAY 04/18/16 02/07/18 02/06/18 History [Prezcobix 800 mg-150 mg (Nf)] Dolutegravir Sodium [Tivicay] 50 mg PO QDAY 04/18/16 02/07/18 02/06/18 History Gabapentin [Neurontin] 300 mg PO TID 11/25/17 02/07/18 02/06/18 History Multivit-Min/FA/Lycopen/Lutein 1 each PO DAILY 11/25/17 02/07/18 02/06/18 History [Adults 50 Plus Multivitamin Tb] Amoxicillin/K Clav Tab [Augmentin 1 tab PO Q12HR #14 tab 01/12/18 02/07/1802/06 Rx 875MG TAB] Docusate Sodium [Colace CAP] 100 mg PO BID #10 capsule 01/12/18 02/07/18 Rx Pantoprazole [Protonix TAB] 40 mg PO DAILY #30 tablet 01/12/18 02/07/18 Rx Benzocaine/Menth/Cetylpyrd 1 each MM Q2HR PRN #60 packet 02/08/18 Unknown Rx [Cepacol X Strength] HYDROcodone/APAP 5-325 [[place] 1 each PO Q6H PRN #18 tablet 02/08/18 Unknown Rx 5-325 mg TAB] Hypromellose [Isopto Tears 0.5%] 2 drops OU Q8H PRN bottle 02/08/18 Unknown Rx Insulin Aspart [NovoLOG Flexpen] 16 units SUB-Q AC #3 insuln.pen 02/08/18 Unknown Rx Insulin Glargine [Lantus VIAL] 30 unit SUB-Q QHS #300 units 02/08/18 Unknown Rx Lispro Insulin [Humalog] 0 unit SUB-Q ACHS units 02/08/18 Unknown Rx Meclizine [Antivert] 25 mg PO TID PRN #30 tablet 05/08/18 Unknown Rx traMADol [Ultram] 50 mg PO Q6HR PRN #24 tablet 05/08/18 Unknown Rx ED Physical Exam - General Limitations: No Limitations General appearance: alert, in no apparent distress - Head Head exam: Present: atraumatic, normocephalic - Eye Eye exam: Present: normal appearance, PERRL, EOMI - ENT ENT exam: Present: mucous membranes moist - Neck Neck exam: Present: normal inspection - Respiratory Respiratory exam: Present: normal lung sounds bilaterally. Absent: respiratory distress, wheezes, rales, rhonchi - Cardiovascular Cardiovascular Exam: Present: regular rate, normal rhythm. Absent: systolic murmur, diastolic murmur, rubs, gallop - GI/Abdominal GI/Abdominal exam: Present: soft, normal bowel sounds. Absent: distended, tenderness - Extremities Exam Extremities exam: Present: normal inspection - Back Exam Back exam: Present: normal inspection, other (tenderness palpation of the paralumbar region) - Neurological Exam Neurological exam: Present: alert, oriented X3, CN II-XII intact, other (able to re-create symptoms with rapid eye and head movement). Absent: motor sensory deficit - Psychiatric Psychiatric exam: Present: normal affect, normal mood - Skin Skin exam: Present: warm, dry, intact, normal color. Absent: rash ED Course Vital Signs 05/08/18 05/08/18 08:51 11:42 Temperature 98.7 F Pulse Rate 78 Respiratory 20 Rate Blood Pressure 140/86 136/86 O2 Sat by Pulse 98 Oximetry ED Medical Decision Making - Lab Data Result diagrams: 05/08/18 09:03 05/08/18 09:03 Lab Results 05/08/18 05/08/18 05/08/18 Range/Units 08:57 09:03 09:03 WBC 4.1 L (4.5-11.0) K/mm3 RBC 4.55 (3.65-5.03) M/mm3 Hgb 13.4 (10.1-14.3) gm/dl Hct 40.7 (30.3-42.9) % MCV 89 (79-97) fl MCH 29 (28-32) pg MCHC 33 (30-34) % RDW 14.3 (13.2-15.2) % Plt Count 174 (140-440) K/mm3 Lymph % (Auto) 29.9 (13.4-35.0) % [place] % (Auto) 6.4 (0.0-7.3) % Eos % (Auto) 1.9 (0.0-4.3) % Baso % (Auto) 0.7 (0.0-1.8) % Lymph # 1.2 (1.2-5.4) K/mm3 [place] # 0.3 (0.0-0.8) K/mm3 Eos # 0.1 (0.0-0.4) K/mm3 Baso # 0.0 (0.0-0.1) K/mm3 Seg Neutrophils % 61.1 (40.0-70.0) % Seg Neutrophils # 2.5 (1.8-7.7) K/mm3 VBG pH (7.320-7.420) Sodium 135 L (137-145) mmol/L Potassium 4.8 (3.6-5.0) mmol/L Chloride 97.9 L (98-107) mmol/L Carbon Dioxide 21 L (22-30) mmol/L Anion Gap 21 mmol/L BUN 25 H (7-17) mg/dL Creatinine 0.7 (0.7-1.2) mg/dL Estimated GFR > 60 ml/min BUN/Creatinine Ratio 36 % Glucose 424 H (65-100) mg/dL POC Glucose 406 H (70-105) Calcium 8.9 (8.4-10.2) mg/dL Urine Color (Yellow) Urine Turbidity (Clear) Urine pH (5.0-7.0) Ur Specific [place] (1.003-1.030) Urine Protein (Negative) mg/dL Urine Glucose (UA) (Negative) mg/dL Urine Ketones (Negative) mg/dL Urine Blood (Negative) Urine Nitrite (Negative) Urine Bilirubin (Negative) Urine Urobilinogen (<2.0) mg/dL Ur Leukocyte Esterase (Negative) Urine WBC (Auto) (0.0-6.0) /HPF Urine RBC (Auto) (0.0-6.0) /HPF U Epithel Cells (Auto) (0-13.0) /HPF Urine Mucus /HPF 05/08/18 05/08/18 05/08/18 Range/Units 09:03 09:40 14:07 WBC (4.5-11.0) K/mm3 RBC (3.65-5.03) M/mm3 Hgb (10.1-14.3) gm/dl Hct (30.3-42.9) % MCV (79-97) fl MCH (28-32) pg MCHC (30-34) % RDW (13.2-15.2) % Plt Count (140-440) K/mm3 Lymph % (Auto) (13.4-35.0) % [place] % (Auto) (0.0-7.3) % Eos % (Auto) (0.0-4.3) % Baso % (Auto) (0.0-1.8) % Lymph # (1.2-5.4) K/mm3 [place] # (0.0-0.8) K/mm3 Eos # (0.0-0.4) K/mm3 Baso # (0.0-0.1) K/mm3 Seg Neutrophils % (40.0-70.0) % Seg Neutrophils # (1.8-7.7) K/mm3 VBG pH 7.322 (7.320-7.420) Sodium (137-145) mmol/L Potassium (3.6-5.0) mmol/L Chloride (98-107) mmol/L Carbon Dioxide (22-30) mmol/L Anion Gap mmol/L BUN (7-17) mg/dL Creatinine (0.7-1.2) mg/dL Estimated GFR ml/min BUN/Creatinine Ratio % Glucose (65-100) mg/dL POC Glucose 319 H (70-105) Calcium (8.4-10.2) mg/dL Urine Color Straw (Yellow) Urine Turbidity Clear (Clear) Urine pH 6.0 (5.0-7.0) Ur Specific [place] 1.020 (1.003-1.030) Urine Protein <15 mg/dl (Negative) mg/dL Urine Glucose (UA) >=500 (Negative) mg/dL Urine Ketones 20 (Negative) mg/dL Urine Blood Sm (Negative) Urine Nitrite Neg (Negative) Urine Bilirubin Neg (Negative) Urine Urobilinogen < 2.0 (<2.0) mg/dL Ur Leukocyte Esterase Neg (Negative) Urine WBC (Auto) < 1.0 (0.0-6.0) /HPF Urine RBC (Auto) 1.0 (0.0-6.0) /HPF U Epithel Cells (Auto) 2.0 (0-13.0) /HPF Urine Mucus Few /HPF - Radiology Data Referring Physician: REJI AG Patient Name: DARRIN GRACIA Date of : 1965 Sex: Female Report Date: 2018-05-08 Report Status: Finalized [facility] [address] [id number] Cat Scan Report Signed Patient: DARRIN GRACIA MR#: [id number] : 1965 Acct:[id number] Age/Sex: 52 / F ADM Date: 05/08/18 Loc: ED Attending Dr: Ordering Physician: REJI AG MD Date of Service: 05/08/18 Procedure(s): CT head/brain wo con Accession Number(s): [id number] cc: REJI AG MD CT HEAD WITHOUT CONTRAST: HISTORY: Dizziness. TECHNIQUE: Sequential 2.5mm CT images. COMPARISON: none. FINDINGS: Cerebral Parenchyma: Within normal limits. Cerebellum: Within normal limits. Brainstem: Within normal limits. Ventricles: Normal. Sella: Normal. Extra-axial spaces: Normal. Basal Cisterns: Normal. Intracranial Hemorrhage: None. Midline Shift: None. Calvarium: Normal. Sinuses: Normal. Mastoid Air Cells: Normal. Visualized Orbits: Normal. IMPRESSION: Cranial CT scan within normal limits. Transcribed By: TTR Dictated By: CARLOS A GODINEZ JR, MD Electronically Authenticated By: CARLOS A GODINEZ JR, MD Signed Date/Time: 05/08/181357 DD/ 57 TD/TT: 05/08/181357 - Medical Decision Making Patient had improvement of her symptoms with meclizine Critical care attestation.: If time is entered above; I have spent that time in minutes in the direct care of this critically ill patient, excluding procedure time. ED Disposition Clinical Impression: Vertigo, Back pain Disposition: DC-01 TO HOME OR SELFCARE Is pt being admited?: No Does the pt Need Aspirin: No Condition: Stable Instructions: Vertigo (ED), Back Pain (ED) Additional Instructions: return if worse Prescriptions: Meclizine [Antivert] 25 mg PO TID PRN #30 tablet PRN Reason: Vertigo traMADol [Ultram] 50 mg PO Q6HR PRN #24 tablet PRN Reason: Pain Referrals: PRIMARY CARE, [Primary Care Provider] - 3-5 Days Time of Disposition: 14:25
[2018-05-08 11:45] VITALS: BP 136/86
[2018-05-08] MEDS ORDERED: ANTIVERT PO ONE (12:15)
[2018-05-08] MEDS ORDERED: FIORICET PO ONE (12:15)
[2018-05-08] MEDS ORDERED: NACL 0.9% 1000 ML 1,000 ML IV ONE (12:15)
[2018-05-08] MEDS ORDERED: ZOFRAN IV ONE (12:16)
[2018-05-08] MEDS ORDERED: NORCO 10/325 PO ONE (12:16)
--- NOTE | 2018-05-08 13:59 | Cat Scan Report ---
CT HEAD WITHOUT CONTRAST: HISTORY: Dizziness. TECHNIQUE: Sequential 2.5mm CT images. COMPARISON: none. FINDINGS: Cerebral Parenchyma: Within normal limits. Cerebellum: Within normal limits. Brainstem: Within normal limits. Ventricles: Normal. Sella: Normal. Extra-axial spaces: Normal. Basal Cisterns: Normal. Intracranial Hemorrhage: None. Midline Shift: None. Calvarium: Normal. Sinuses: Normal. Mastoid Air Cells: Normal. Visualized Orbits: Normal. IMPRESSION: Cranial CT scan within normal limits.
[2018-05-08] MEDS ORDERED: HumuLIN R IV ONE (14:08)
[2018-05-08] MEDS ORDERED: HumuLIN R ONE (14:13)
== END 2018-05-08 15:30 | disposition home or self-care (01) ==
LOC: ED 08:45
DX: R42 Dizziness and giddiness (principal); M54.5 Low back pain; E11.9 Type 2 diabetes mellitus without complications; F17.200 Nicotine dependence, unspecified, uncomplicated; Z90.49 Acquired absence of other specified parts of digestive tract; I12.0 Hypertensive chronic kidney disease with stage 5 chronic kidney disease or end stage renal disease; E11.22 Type 2 diabetes mellitus with diabetic chronic kidney disease; N18.6 End stage renal disease; Z99.2 Dependence on renal dialysis; Z79.4 Long term (current) use of insulin
CPT/HCPCS: 36415; 70450; 80048; 81001; 82805; 82962; 85025; 96361; 96374; 96375; 99285; J2405; J7030; J1815

== ENCOUNTER 2018-08-01 21:07 | Emergency (ER) | payer MEDICARE ==
[2018-08-01 21:50] LABS: Basophils % (Auto) 0.5 % (0.0-1.8); Eosinophils # (Auto) 0.1 K/mm3 (0.0-0.4); Eosinophils % (Auto) 1.5 % (0.0-4.3); Lymphocytes # (Auto) 2.7 K/mm3 (1.2-5.4); Lymphocytes % (Auto) 40.3 % (13.4-35.0); Mean Corpuscular HGB Conc 33 % (30-34); Mean Corpuscular Volume 88 fl (79-97); Monocytes # (Auto) 0.4 K/mm3 (0.0-0.8); Monocytes % (Auto) 5.3 % (0.0-7.3); Platelet Count 193 K/mm3 (140-440); Red Blood Count 4.43 M/mm3 (3.65-5.03); Red Cell Distribution Width 13.8 % (13.2-15.2)
[2018-08-01 21:54] LABS: BUN/Creatinine Ratio 28; Blood Urea Nitrogen 17 mg/dL (7-17); Calcium 9.3 mg/dL (8.4-10.2); Hemolysis Index 21
[2018-08-01 22:18] LABS: Bilirubin,Urine NEG (Negative); Blood,Urine MOD (Negative); Color,Urine Yellow (Yellow); Mucus,Urine FEW /HPF; Protein,Urine <15 mg/dL mg/dL (Negative); Urobilinogen,Urine < 2.0 mg/dL (<2.0)
--- NOTE | 2018-08-01 22:41 | Emergency Department Report ---
HPI - General Chief Complaint: Overdose Time Seen by Provider: 08/01/18 21:39 - HPI HPI: 52-year-old female presents to the emergency department with the complaint that she accidentally took the wrong insulin and to much of it. The patient does have a history of insulin-dependent diabetes and usually takes 15-20 units of NovoLog 3 times daily, which she did today at breakfast lunch and dinner. She is also supposed to take 40 units of Lantus at bedtime. However the patient was not paying attention and instead she says that she accidentally took 40 units of NovoLog instead. The patient started feeling a little jittery and says that she knows that it will drop her blood sugar, so she came in to be evaluated. Her blood sugar prior to taking that last dose of NovoLog was 243 and her blood sugar was 87 in triage. She has a past medical history of HIV and says that her levels are undetectable. She also has a history of hypertension and some previous kidney issues but is no longer dialysis dependent. She has a primary care physician, cut off man and infectious disease physician. ED Past Medical Hx - Past Medical History Previous Medical History?: Yes Hx Hypertension: Yes (resolved ) Hx Heart Attack/AMI: No Hx Diabetes: Yes Hx Deep Vein Thrombosis: No Hx Liver Disease: No Hx Renal Disease: Yes (ARF 1 year ago, dialysis for 3months but not now) Hx Sickle Cell Disease: No Hx Seizures: No Hx Asthma: No Hx COPD: No Hx HIV: Yes - Surgical History Past Surgical History?: Yes Hx Pacemaker: No Hx Internal Defibrillator: No Hx Cholecystectomy: Yes Hx Appendectomy: Yes Additional Surgical History: x 3. PERMA CATH AND REMOVAL. PSEUDO CYSTS REMOVED FROM PANCREAS (2016) - Social History Smoking Status: Never Smoker Substance Use Type: None - Medications Home Medications: Home Medications Medication Instructions Recorded Confirmed Last Taken Type Acetaminophen [Arthritis Pain 650 mg PO DAILY 08/01/18 08/01/18 Unknown History Relief] AtorvaSTATin [Lipitor] 1 tab PO DAILY 08/01/18 08/01/18 Unknown History Docusate Sodium [Dok] 100 mg PO DAILY 08/01/18 08/01/18 Unknown History Dolutegravir/Rilpivirine [Juluca 1 tab PO DAILY 08/01/18 08/01/18 Unknown History 50-25 mg Tablet] Ibuprofen 600 mg PO DAILY 08/01/18 08/01/18 Unknown History Insulin Aspart [NovoLOG 100 15 - 20 unit SUB-Q TID 08/01/18 08/01/18 Unknown History UNITS/ML VIAL] Insulin Glargine [Lantus VIAL] 40 units SUB-Q HS 08/01/18 08/01/18 Unknown History Lisinopril [Prinivil] 1 tab PO DAILY 08/01/18 08/01/18 Unknown History Naproxen 500 mg PO DAILY 08/01/18 08/01/18 Unknown History Ondansetron [Zofran ODT TAB] 1 tab PO DAILY 08/01/18 08/01/18 Unknown History ED Review of Systems ROS: Stated complaint: ACCIDENTAL OVERDOSE Other details as noted in HPI Comment: All other systems reviewed and negative Constitutional: denies: chills, fever Eyes: denies: eye pain, eye discharge, vision change ENT: denies: ear pain, throat pain Respiratory: denies: cough, shortness of breath, wheezing Cardiovascular: denies: chest pain, palpitations Gastrointestinal: denies: abdominal pain, nausea, diarrhea Genitourinary: denies: urgency, dysuria, discharge Musculoskeletal: denies: back pain, joint swelling, arthralgia Skin: denies: rash, lesions Neurological: denies: headache, weakness Physical Exam - Physical Exam Vital Signs: Vital Signs 08/01/18 08/01/18 21:12 21:38 Temperature 98.4 F 98 F Pulse Rate 104 H 95 H Respiratory 18 20 Rate Blood Pressure 143/87 Blood Pressure 132/81 [Right] O2 Sat by Pulse 96 94 Oximetry Physical Exam: GENERAL: The patient is well-developed well-nourished. HEENT: Normocephalic. Atraumatic. Patient has moist mucous membranes. EYES: Extraocular motions are intact. Pupils are equal and reactive to light bilaterally. NECK: Supple. Trachea is midline. CHEST/LUNGS: Clear to auscultation. There is no respiratory distress noted. HEART/CARDIOVASCULAR: Regular. There is no tachycardia. There is no obvious murmur. ABDOMEN: Abdomen is soft, nontender. Patient has normal bowel sounds. There is no abdominal distention. SKIN: Skin is warm and dry. NEURO: The patient is awake, alert, and oriented. The patient is cooperative. The patient has no focal neurologic deficits. The patient has normal speech. MUSCULOSKELETAL: There is no tenderness or deformity. There is no evidence of acute injury. ED Course Vital Signs 08/01/18 08/01/18 21:12 21:38 Temperature 98.4 F 98 F Pulse Rate 104 H 95 H Respiratory 18 20 Rate Blood Pressure 143/87 Blood Pressure 132/81 [Right] O2 Sat by Pulse 96 94 Oximetry ED Medical Decision Making - Lab Data Result diagrams: 08/01/18 21:24 08/01/18 21:24 - EKG Data -: EKG Interpreted by Me EKG shows normal: sinus rhythm, axis, intervals, QRS complexes, ST-T waves Rate: normal - EKG Data When compared to previous EKG there are: previous EKG unavailable Interpretation: normal EKG - Medical Decision Making The patient presents to be evaluated after accidentally taking 40 units of NovoLog instead of Lantus. Since NovoLog is a much shorter acting insulin there was concern that she would develop significant hypoglycemia. She did drop from about 240 to about 80 between taking the insulin and coming into triage. Jaydon siddiqui drink some juice and ate some food and she was reevaluated multiple times over about 3 hours and her blood sugar has steadily risen to about 130. The half-life of the NovoLog has passed. The patient will hold off on taking her Lantus this evening and will recheck her blood sugar in the morning and restart her insulin regimen if her blood sugar numbers are appropriate. She will contact her primary care physician and cut off man. She will return to the ER with any worsening of her symptoms or any acute distress. Critical Care Time: No Critical care attestation.: If time is entered above; I have spent that time in minutes in the direct care of this critically ill patient, excluding procedure time. ED Disposition Clinical Impression: Overdose of insulin Qualifiers: Encounter type: initial encounter Injury intent: accidental or unintentional Qualified Code(s): T38.3X1A - Poisoning by insulin and oral hypoglycemic [antidiabetic] drugs, accidental (unintentional), initial encounter Accidental overdose Qualifiers: Encounter type: initial encounter Qualified Code(s): T50.901A - Poisoning by unspecified drugs, medicaments and biological substances, accidental (unintentional), initial encounter Disposition: - TO HOME OR SELFCARE Is pt being admited?: No Condition: Stable Additional Instructions: Please follow-up with your primary care physician and/or cut off man. Return to the emergency Department with any worsening of your symptoms or any acute distress. Referrals: PRIMARY CARE, [Primary Care Provider] - 3-5 Days Time of Disposition: 00:26
[2018-08-01 23:18] VITALS: BP 128/73
== END 2018-08-02 00:32 | disposition home or self-care (01) ==
LOC: ED 21:07
DX: T38.3X1A Poisoning by insulin and oral hypoglycemic [antidiabetic] drugs, accidental (unintentional), initial encounter (principal); E11.22 Type 2 diabetes mellitus with diabetic chronic kidney disease; I12.0 Hypertensive chronic kidney disease with stage 5 chronic kidney disease or end stage renal disease; N18.6 End stage renal disease; Z99.2 Dependence on renal dialysis; Y92.89 Other specified places as the place of occurrence of the external cause; Z90.49 Acquired absence of other specified parts of digestive tract
CPT/HCPCS: 36415; 80048; 81001; 82962; 85025; 93005; 93010

== ENCOUNTER 2018-10-29 18:32 | Emergency (ER) | payer MEDICARE ==
--- NOTE | 2018-10-29 18:46 | Emergency Department Report ---
Blank Doc - Documentation Documentation: 52 y old presents with abdominal and back pain, states also pain in arma and leg from arthritis denies f/n/v/d labs ordered
[2018-10-29 19:14] LABS: Basophils % (Auto) 0.7 % (0.0-1.8); Eosinophils # (Auto) 0.1 K/mm3 (0.0-0.4); Eosinophils % (Auto) 1.6 % (0.0-4.3); Hematocrit 38.5 % (30.3-42.9); Hemoglobin 13.1 gm/dl (10.1-14.3); Lymphocytes # (Auto) 2.4 K/mm3 (1.2-5.4); Lymphocytes % (Auto) 36.4 % (13.4-35.0); Mean Corpuscular HGB Conc 34 % (30-34); Mean Corpuscular Volume 89 fl (79-97); Monocytes # (Auto) 0.5 K/mm3 (0.0-0.8); Monocytes % (Auto) 7.7 % (0.0-7.3); Platelet Count 198 K/mm3 (140-440); Red Blood Count 4.32 M/mm3 (3.65-5.03); Red Cell Distribution Width 14.4 % (13.2-15.2)
[2018-10-29 19:34] LABS: Alanine Aminotransferase 7 units/L (7-56); Albumin 4.2 g/dL (3.9-5); BUN/Creatinine Ratio 18; Blood Urea Nitrogen 20 mg/dL (7-17); Calcium 9.3 mg/dL (8.4-10.2); Hemolysis Index 12
[2018-10-29 19:39] LABS: Bilirubin,Direct < 0.2 mg/dL (0-0.2)
--- NOTE | 2018-10-29 20:03 | Cat Scan Report ---
PROCEDURE: CT ABDOMEN PELVIS WO CON TECHNIQUE: Computerized axial tomography of the abdomen and pelvis was performed without intravenous contrast. This study is performed without intravascular contrast material and its sensitivity for ab dominal and pelvic pathology, including neoplasms, inflammation, abscess, free fluid, thrombosis, art erial dissection and infarction, is reduced compared with a contrast enhanced study. CT DOSE LENGTH PRODUCT: 1139.7 mGycm HISTORY: Generalized Abdominal Pain COMPARISONS: CT A/P 02/06/2018 . FINDINGS: Visualized lower thorax: No significant abnormality. Liver: Normal size and attenuation. Spleen: Normal size and attenuation. Gallbladder and biliary system: Gallbladder has been surgically removed. Pancreas: Normal. Adrenals: Normal. Kidneys: Normal. GI tract: There is a surgical anastomosis in the left upper quadrant. Lymph nodes and mesentery: Normal. Vasculature: Moderate calcification of the aorta. Bladder: Normal. Reproductive organs: A small 1.7 cm cyst in the left ovary is slightly larger (previously 1.4 cm). Peritoneum: No free fluid. Musculoskeletal structures: No significant abnormality. Other: None. IMPRESSION: No acute abnormality of the abdomen and pelvis . Small left ovarian cyst is slightly lar jacqui. This document is electronically signed by Tasia Pham MD., October 29 2018 08:01:28 PM ET
[2018-10-29] MEDS ORDERED: ZOFRAN IV ONE (20:37)
[2018-10-29] MEDS ORDERED: MORPHINE IV ONE (20:37)
[2018-10-29] MEDS ORDERED: NORCO 5/325 PO ONE (20:38)
--- NOTE | 2018-10-29 20:46 | Emergency Department Report ---
ED Abdominal Pain HPI - General Chief Complaint: Abdominal Pain Stated Complaint: STOMACH PAIN/BACK PAIN Time Seen by Provider: 10/29/18 18:42 Source: patient Mode of arrival: Ambulatory Limitations: No Limitations - History of Present Illness Initial Comments: Mrs. Tan is a very pleasant 52 yo female with hx of 4 days of epigastric pain radiating to back for 4 days. Has hx of chronic pancreatitis and gastritis. Pain flares up every year or so. Has had 2 months of right wrist pain. Her PCP Dr. Parul Soriano has diagnosed her with tendinitis. She has referral to orthopedic surgeon. Has had bilateral posterior knee pain for several weeks. NO hx of injury. 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 Hx of HIV, undetectable viral load on HAART. Hx of HTN, DM. MD Complaint: abdominal pain -: Gradual, days(s) (4) Location: epigastric Migration to: other (back) Severity: severe Severity scale (0 -10): 10 Quality: sharp Consistency: constant Improves With: nothing Worsens With: nothing Associated Symptoms: denies other symptoms - Related Data Home Medications Medication Instructions Recorded Confirmed Last Taken Acetaminophen [Arthritis Pain 650 mg PO DAILY 08/01/18 08/01/18 Unknown Relief] Docusate Sodium [Dok] 100 mg PO DAILY 08/01/18 08/01/18 Unknown Dolutegravir/Rilpivirine [[place] 1 tab PO DAILY 08/01/18 08/01/18 Unknown 50-25 mg Tablet] Insulin Aspart [NovoLOG 100 15 - 20 unit SUB-Q TID 08/01/18 08/01/18 Unknown UNITS/ML VIAL] Insulin Glargine [Lantus VIAL] 40 units SUB-Q HS 08/01/18 08/01/18 Unknown RX: AtorvaSTATin [Lipitor] 1 tab PO DAILY 08/01/18 08/01/18 Unknown RX: Ibuprofen 600 mg PO DAILY 08/01/18 08/01/18 Unknown RX: Lisinopril [Prinivil] 1 tab PO DAILY 08/01/18 08/01/18 Unknown RX: Naproxen 500 mg PO DAILY 08/01/18 08/01/18 Unknown RX: Ondansetron [Zofran ODT TAB] 1 tab PO DAILY 08/01/18 08/01/18 Unknown Previous Rx's Medication Instructions Recorded Last Taken Type HYDROcodone/APAP 5-325 [[employer] 1 each PO Q6HR PRN #10 tablet 10/29/18 Unknown Rx 5/325] RX: Promethazine [Phenergan TAB] 25 mg PO Q6HR PRN #10 tab 10/29/18 Unknown Rx Allergies Allergy/AdvReac Type Severity Reaction Status Date / Time No Known Allergies Allergy Verified 05/08/18 08:51 ED Review of Systems ROS: Stated complaint: STOMACH PAIN/BACK PAIN Other details as noted in HPI Comment: All other systems reviewed and negative Constitutional: denies: fever, malaise Respiratory: denies: cough Cardiovascular: denies: chest pain ED Past Medical Hx - Past Medical History Previous Medical History?: Yes Hx Hypertension: Yes (resolved ) Hx Heart Attack/AMI: No Hx Diabetes: Yes Hx Deep Vein Thrombosis: No Hx Liver Disease: No Hx Renal Disease: Yes (ARF 1 year ago, dialysis for 3months but not now) Hx Sickle Cell Disease: No Hx Seizures: No Hx Asthma: No Hx COPD: No Hx HIV: Yes - Surgical History Past Surgical History?: Yes Hx Pacemaker: No Hx Internal Defibrillator: No Hx Cholecystectomy: Yes Hx Appendectomy: Yes Additional Surgical History: x 3. PERMA CATH AND REMOVAL. PSEUDO CYSTS REMOVED FROM PANCREAS (2016) - Social History Smoking Status: Current Some Day Smoker Substance Use Type: None - Medications Home Medications: Home Medications Medication Instructions Recorded Confirmed Last Taken Type Acetaminophen [Arthritis Pain 650 mg PO DAILY 08/01/18 08/01/18 Unknown History Relief] Docusate Sodium [Dok] 100 mg PO DAILY 08/01/18 08/01/18 Unknown History Dolutegravir/Rilpivirine [[place] 1 tab PO DAILY 08/01/18 08/01/18 Unknown History 50-25 mg Tablet] Insulin Aspart [NovoLOG 100 15 - 20 unit SUB-Q TID 08/01/18 08/01/18 Unknown History UNITS/ML VIAL] Insulin Glargine [Lantus VIAL] 40 units SUB-Q HS 08/01/18 08/01/18 Unknown History RX: AtorvaSTATin [Lipitor] 1 tab PO DAILY 08/01/18 08/01/18 Unknown History RX: Ibuprofen 600 mg PO DAILY 08/01/18 08/01/18 Unknown History RX: Lisinopril [Prinivil] 1 tab PO DAILY 08/01/18 08/01/18 Unknown History RX: Naproxen 500 mg PO DAILY 08/01/18 08/01/18 Unknown History RX: Ondansetron [Zofran ODT TAB] 1 tab PO DAILY 08/01/18 08/01/18 Unknown History HYDROcodone/APAP 5-325 [[employer] 1 each PO Q6HR PRN #10 tablet 10/29/18 Unknown Rx 5/325] RX: Promethazine [Phenergan TAB] 25 mg PO Q6HR PRN #10 tab 10/29/18 Unknown Rx ED Physical Exam - General Limitations: No Limitations General appearance: alert, in no apparent distress - Head Head exam: Present: atraumatic, normocephalic - Eye Eye exam: Present: normal appearance - ENT ENT exam: Present: mucous membranes moist - Neck Neck exam: Present: normal inspection, full ROM - Respiratory Respiratory exam: Present: normal lung sounds bilaterally. Absent: respiratory distress, wheezes, rales, rhonchi - Cardiovascular Cardiovascular Exam: Present: regular rate, normal rhythm, normal heart sounds. Absent: systolic murmur, diastolic murmur, rubs, gallop - GI/Abdominal GI/Abdominal exam: Present: soft, normal bowel sounds. Absent: distended, tenderness, guarding, rebound - Extremities Exam Extremities exam: Present: normal inspection - Back Exam Back exam: Present: normal inspection - Neurological Exam Neurological exam: Present: alert, oriented X3 - Psychiatric Psychiatric exam: Present: normal affect, normal mood - Skin Skin exam: Present: warm, dry, intact, normal color. Absent: rash ED Course Vital Signs 10/29/18 10/29/18 10/29/18 18:39 20:00 20:29 Temperature 98.3 F 97.8 F Pulse Rate 106 H 87 85 Respiratory 18 16 17 Rate Blood Pressure 121/85 122/72 Blood Pressure 124/75 [Left] O2 Sat by Pulse 96 98 97 Oximetry 10/29/18 21:00 Temperature Pulse Rate 82 Respiratory 12 Rate Blood Pressure 129/77 Blood Pressure [Left] O2 Sat by Pulse 97 Oximetry ED Medical Decision Making - Lab Data Result diagrams: 10/29/18 18:59 10/29/18 18:59 Laboratory Results - last 24 hr 10/29/18 10/29/18 18:59 18:59 WBC 6.5 RBC 4.32 Hgb 13.1 Hct 38.5 MCV 89 MCH 30 MCHC 34 RDW 14.4 Plt Count 198 Lymph % (Auto) 36.4 H [place] % (Auto) 7.7 H Eos % (Auto) 1.6 Baso % (Auto) 0.7 Lymph # 2.4 [place] # 0.5 Eos # 0.1 Baso # 0.0 Seg Neutrophils % 53.6 Seg Neutrophils # 3.5 Sodium 139 Potassium 4.4 Chloride 99.0 Carbon Dioxide 27 Anion Gap 17 BUN 20 H Creatinine 1.1 Estimated GFR > 60 BUN/Creatinine Ratio 18 Glucose 298 H Calcium 9.3 Total Bilirubin 0.20 Direct Bilirubin < 0.2 Indirect Bilirubin 0.0 AST 9 ALT 7 Alkaline Phosphatase 68 Total Protein 7.2 Albumin 4.2 Albumin/Globulin Ratio 1.4 Amylase 32 Lipase 32 - Radiology Data Radiology results: report reviewed - Medical Decision Making Mrs. Tan presents with epigastric pain. I reveal several discharge summaries would reveal diagnosis of gastritis, gastroparesis severe pancreatitis. CBC chemistry lipase all within normal limits. CT abdomen and pelvis did not reveal any acute inflammatory process including normal pancreas. According to CT, gallbladder appeared to be surgically removed. On exam she appears well and nontoxic. No active vomiting. Differential diagnosis includes peptic ulcer disease, gastritis, pancreatitis, gastroparesis I do not detect an acute emergent condition at this time. She was treated with IV and by mouth analgesia. I will prescribe promethazine and [employer]. I strongly urged urged follow-up with her PCP Dr. Parul Soriano. Critical care attestation.: If time is entered above; I have spent that time in minutes in the direct care of this critically ill patient, excluding procedure time. ED Disposition Clinical Impression: Diabetes mellitus type 1, uncontrolled, with complications, Acute generalized abdominal pain, Gastritis Disposition: DC-01 TO HOME OR SELFCARE Is pt being admited?: No Does the pt Need Aspirin: No Condition: Stable Instructions: Abdominal Pain (ED) Prescriptions: HYDROcodone/APAP 5-325 [[employer] 5/325] 1 each PO Q6HR PRN #10 tablet PRN Reason: Pain RX: Promethazine [Phenergan TAB] 25 mg PO Q6HR PRN #10 tab PRN Reason: Nausea Referrals: PARUL SORIANO MD [Referring] - 3-5 Days Forms: Work/School Release Form(ED)
[2018-10-29 21:40] VITALS: BP 129/77
[2018-10-29 21:53] LABS: Bilirubin,Urine NEG (Negative); Blood,Urine SM (Negative); Color,Urine Straw (Yellow); Urobilinogen,Urine < 2.0 mg/dL (<2.0)
== END 2018-10-29 22:14 | disposition home or self-care (01) ==
LOC: ED 18:32
DX: K29.70 Gastritis, unspecified, without bleeding (principal); E10.22 Type 1 diabetes mellitus with diabetic chronic kidney disease; I12.0 Hypertensive chronic kidney disease with stage 5 chronic kidney disease or end stage renal disease; N18.6 End stage renal disease; Z99.2 Dependence on renal dialysis; Z90.49 Acquired absence of other specified parts of digestive tract; F17.200 Nicotine dependence, unspecified, uncomplicated
CPT/HCPCS: 36415; 74176; 80048; 80076; 81001; 82150; 82962; 83690; 85025; 96374; 96375; 99284; J2270; J2405

== ENCOUNTER 2018-12-10 15:37 | Emergency (ER) | payer MEDICARE ==
--- NOTE | 2018-12-10 15:46 | Emergency Department Report ---
Chief Complaint: Abdominal Pain Stated Complaint: LOWER BACK/ARM/STOMACH PAIN/LIGHTHEADED Time Seen by Provider: 12/10/18 15:43 - HPI History of Present Illness: pt presents to the ED with c/o N/V that began two days ago +suprapubic abd pain, lower back pain +urinary frequency, dysuria no fever PMHx DM, HIV, CKD, pancreatitis +smoker +drinker no drug use MSE screening note: Focused history and physical exam performed. Due to findings the following was ordered: labs, UA ED Disposition for MSE Condition: Stable Instructions: Abdominal Pain (ED)
[2018-12-10 15:47] VITALS: BP 151/84
[2018-12-10 16:09] LABS: Basophils % (Auto) 0.5 % (0.0-1.8); Eosinophils # (Auto) 0.1 K/mm3 (0.0-0.4); Eosinophils % (Auto) 1.2 % (0.0-4.3); Hematocrit 39.5 % (30.3-42.9); Hemoglobin 13.3 gm/dl (10.1-14.3); Mean Corpuscular HGB Conc 34 % (30-34); Mean Corpuscular Volume 88 fl (79-97); Monocytes # (Auto) 0.5 K/mm3 (0.0-0.8); Monocytes % (Auto) 8.4 % (0.0-7.3); Platelet Count 188 K/mm3 (140-440); Red Blood Count 4.49 M/mm3 (3.65-5.03); Red Cell Distribution Width 14.5 % (13.2-15.2)
[2018-12-10 16:26] LABS: Alanine Aminotransferase 14 units/L (7-56); Albumin 4.2 g/dL (3.9-5); BUN/Creatinine Ratio 24; Blood Urea Nitrogen 17 mg/dL (7-17); Calcium 9.3 mg/dL (8.4-10.2); Hemolysis Index 16
--- NOTE | 2018-12-10 18:24 | Emergency Department Report ---
ED Abdominal Pain HPI - General Chief Complaint: Abdominal Pain Stated Complaint: LOWER BACK/ARM/STOMACH PAIN/LIGHTHEADED Time Seen by Provider: 12/10/18 15:43 Source: patient Mode of arrival: Ambulatory Limitations: No Limitations - History of Present Illness Initial Comments: This is 53-year-old female complaining of abdominal pain and lower back pain that started a couple days ago. She says she has a history of diabetes, HIV, hypertension and renal disease but her kidney function is normal per patient. Denies any fever or chills. Pain is located the pelvic area and to lower back pain is 8/10, feels sharp and achy. [id number] medication taken for pain but no relief. Pain is intermittent. No exacerbating factors and no relief at rest. Patient also complaining that this she has had this pain in the past. She reports that she feels a little bit lightheaded and dizziness earlier this morning but she is okay now she says she thinks is because she does not drink enough water. Patient states denies any nausea or vomiting. Denies any fever or chills. Denies any vaginal bleeding or discharge. Denies any urinary burning, frequency or urgency. Denies any sore throat, cough, shortness of breath or chest pain. Denies any neck pain or stiffness or headache MD Complaint: abdominal pain, other (lower back pain) Onset/Timin -: days(s) Location: suprapubic (and lower back) Radiation: none Migration to: no migration Severity: severe Severity scale (0 -10): 8 Quality: aching, sharp Consistency: intermittent Improves With: nothing Worsens With: nothing Context: other (unknown) Associated Symptoms: denies: nausea, vomiting, diarrhea, fever, chills, constipation, dysuria, hematemesis, hematochezia, melena, hematuria, anorexia, syncope, other - Related Data LMP (females 10-50): other (menopause) Home Medications Medication Instructions Recorded Confirmed Last Taken Acetaminophen [Arthritis Pain 650 mg PO DAILY 08/01/18 08/01/18 Unknown Relief] AtorvaSTATin [Lipitor] 1 tab PO DAILY 08/01/18 08/01/18 Unknown Docusate Sodium [Dok] 100 mg PO DAILY 08/01/18 08/01/18 Unknown Dolutegravir/Rilpivirine [[place] 1 tab PO DAILY 08/01/18 08/01/18 Unknown 50-25 mg Tablet] Ibuprofen 600 mg PO DAILY 08/01/18 08/01/18 Unknown Insulin Aspart [NovoLOG 100 15 - 20 unit SUB-Q TID 08/01/18 08/01/18 Unknown UNITS/ML VIAL] Insulin Glargine [Lantus VIAL] 40 units SUB-Q HS 08/01/18 08/01/18 Unknown Lisinopril [Prinivil] 1 tab PO DAILY 08/01/18 08/01/18 Unknown Naproxen 500 mg PO DAILY 08/01/18 08/01/18 Unknown Previous Rx's Medication Instructions Recorded Last Taken Type HYDROcodone/APAP 5-325 [[place] 1 each PO Q6HR PRN #10 tablet 10/29/18 Unknown Rx 5/325] Promethazine [Phenergan] 25 mg PO Q6HR PRN #10 tab 10/29/18 Unknown Rx HYDROcodone/ACETAMINOPHEN 1 each PO Q6HR PRN #10 tablet 10/31/18 Unknown Rx [Hydrocodone-Acetamin 5-325 mg] Acetaminophen/Codeine [Tylenol 1 tab PO Q8H PRN #12 tab 12/10/18 Unknown Rx /Codeine # 3 tab] Dicyclomine [Bentyl] 10 mg PO Q8H 3 Days #12 capsule 12/10/18 Unknown Rx Ondansetron [Zofran ODT TAB] 1 tab PO Q8H PRN #12 tab 12/10/18 Unknown Rx Allergies Allergy/AdvReac Type Severity Reaction Status Date / Time No Known Allergies Allergy Verified 05/08/18 08:51 ED Review of Systems ROS: Stated complaint: LOWER BACK/ARM/STOMACH PAIN/LIGHTHEADED Other details as noted in HPI Constitutional: denies: chills, fever ENT: denies: throat pain, congestion Respiratory: denies: cough, shortness of breath, SOB with exertion, SOB at rest, wheezing Cardiovascular: denies: chest pain, palpitations, edema, syncope Gastrointestinal: abdominal pain. denies: nausea, vomiting, diarrhea, constipation, hematemesis, melena, hematochezia Genitourinary: denies: urgency, dysuria, frequency, hematuria, discharge, abnormal menses, dyspareunia Musculoskeletal: back pain. denies: joint swelling, arthralgia, myalgia Skin: denies: rash Neurological: denies: headache, weakness, numbness, paresthesias, confusion, a bnormal gait, vertigo Psychiatric: denies: anxiety ED Past Medical Hx - Past Medical History Previous Medical History?: Yes Hx Hypertension: Yes (resolved ) Hx Heart Attack/AMI: No Hx Diabetes: Yes Hx Deep Vein Thrombosis: No Hx Liver Disease: No Hx Renal Disease: Yes (ARF 1 year ago, dialysis for 3months but not now) Hx Sickle Cell Disease: No Hx Seizures: No Hx Asthma: No Hx COPD: No Hx HIV: Yes - Surgical History Past Surgical History?: Yes Hx Pacemaker: No Hx Internal Defibrillator: No Hx Cholecystectomy: Yes Hx Appendectomy: Yes Additional Surgical History: x 3. PERMA CATH AND REMOVAL. PSEUDO CYSTS REMOVED FROM PANCREAS (2015) - Family History Family history: hypertension (she was at dialysis and the) - Social History Smoking Status: Current Every Day Smoker Substance Use Type: Alcohol, Prescribed - Medications Home Medications: Home Medications Medication Instructions Recorded Confirmed Last Taken Type Acetaminophen [Arthritis Pain 650 mg PO DAILY 08/01/18 08/01/18 Unknown History Relief] AtorvaSTATin [Lipitor] 1 tab PO DAILY 08/01/18 08/01/18 Unknown History Docusate Sodium [Dok] 100 mg PO DAILY 08/01/18 08/01/18 Unknown History Dolutegravir/Rilpivirine [[place] 1 tab PO DAILY 08/01/18 08/01/18 Unknown History 50-25 mg Tablet] Ibuprofen 600 mg PO DAILY 08/01/18 08/01/18 Unknown History Insulin Aspart [NovoLOG 100 15 - 20 unit SUB-Q TID 08/01/18 08/01/18 Unknown History UNITS/ML VIAL] Insulin Glargine [Lantus VIAL] 40 units SUB-Q HS 08/01/18 08/01/18 Unknown History Lisinopril [Prinivil] 1 tab PO DAILY 08/01/18 08/01/18 Unknown History Naproxen 500 mg PO DAILY 08/01/18 08/01/18 Unknown History HYDROcodone/APAP 5-325 [[place] 1 each PO Q6HR PRN #10 tablet 10/29/18 Unknown Rx 5/325] Promethazine [Phenergan] 25 mg PO Q6HR PRN #10 tab 10/29/18 Unknown Rx HYDROcodone/ACETAMINOPHEN 1 each PO Q6HR PRN #10 tablet 10/31/18 Unknown Rx [Hydrocodone-Acetamin 5-325 mg] Acetaminophen/Codeine [Tylenol 1 tab PO Q8H PRN #12 tab 12/10/18 Unknown Rx /Codeine # 3 tab] Dicyclomine [Bentyl] 10 mg PO Q8H 3 Days #12 capsule 12/10/18 Unknown Rx Ondansetron [Zofran ODT TAB] 1 tab PO Q8H PRN #12 tab 12/10/18 08/01/18 Unknown Rx ED Physical Exam - General Limitations: No Limitations General appearance: alert, in no apparent distress - Head Head exam: Present: atraumatic, normocephalic, normal inspection - Eye Eye exam: Present: normal appearance, PERRL, EOMI Pupils: Present: normal accommodation - ENT ENT exam: Present: normal exam, normal orophraynx, mucous membranes moist, TM's normal bilaterally, normal external ear exam - Neck Neck exam: Present: normal inspection, full ROM, other (no C-spine tenderness). Absent: tenderness, lymphadenopathy - Respiratory Respiratory exam: Present: normal lung sounds bilaterally. Absent: respiratory distress, chest wall tenderness - Cardiovascular Cardiovascular Exam: Present: bradycardia, normal heart sounds - GI/Abdominal GI/Abdominal exam: Present: soft, normal bowel sounds. Absent: distended, tenderness, guarding, rebound, rigid, organomegaly, mass, bruit, hernia - Extremities Exam Extremities exam: Present: normal inspection, full ROM, normal capillary refill, other (No cce. + 2 pulses in all extremities, no neurovascular compromise). Absent: tenderness, pedal edema, joint swelling, calf tenderness - Back Exam Back exam: Present: normal inspection, full ROM, other (later that any di fficulties). Absent: tenderness, CVA tenderness (R), CVA tenderness (L), muscle spasm, paraspinal tenderness, vertebral tenderness, rash noted - Expanded Back Exam Expanded Back exam: Absent: saddle anesthesia Back exam: Positive Straight Leg Raise: Left, Right - Neurological Exam Neurological exam: Present: alert, oriented X3, normal gait, reflexes normal, other (no focal neurological deficits). Absent: motor sensory deficit - Psychiatric Psychiatric exam: Present: normal affect, normal mood - Skin Skin exam: Present: warm, dry, intact, normal color. Absent: rash ED Course Vital Signs 12/10/18 12/10/18 15:44 16:26 Temperature 98.5 F Pulse Rate 108 H Respiratory 18 16 Rate Blood Pressure 151/84 O2 Sat by Pulse 96 Oximetry Vital Signs 12/10/18 12/10/18 12/10/18 15:44 16:26 19:57 Temperature 98.5 F Pulse Rate 108 H 85 Respiratory 18 16 97 H Rate Blood Pressure 151/84 O2 Sat by Pulse 96 Oximetry - Reevaluation(s) Reevaluation #1: 12/10/18 20:01 She remained stable throughout ED course. Her lab work is stable and urinalysis is negative. Patient refused CT scan of the abdomen and pelvis and this patient wanted to go home ED Medical Decision Making - Lab Data Result diagrams: 12/10/18 15:49 12/10/18 15:49 Lab Results 12/10/18 12/10/18 12/10/18 Range/Units 15:49 15:49 17:35 WBC 6.1 (4.5-11.0) K/mm3 RBC 4.49 (3.65-5.03) M/mm3 Hgb 13.3 (10.1-14.3) gm/dl Hct 39.5 (30.3-42.9) % MCV 88 (79-97) fl MCH 30 (28-32) pg MCHC 34 (30-34) % RDW 14.5 (13.2-15.2) % Plt Count 188 (140-440) K/mm3 Lymph % (Auto) 32.0 (13.4-35.0) % [place] % (Auto) 8.4 H (0.0-7.3) % Eos % (Auto) 1.2 (0.0-4.3) % Baso % (Auto) 0.5 (0.0-1.8) % Lymph # 2.0 (1.2-5.4) K/mm3 [place] # 0.5 (0.0-0.8) K/mm3 Eos # 0.1 (0.0-0.4) K/mm3 Baso # 0.0 (0.0-0.1) K/mm3 Seg Neutrophils % 57.9 (40.0-70.0) % Seg Neutrophils # 3.6 (1.8-7.7) K/mm3 Sodium 138 (137-145) mmol/L Potassium 4.7 (3.6-5.0) mmol/L Chloride 98.8 (98-107) mmol/L Carbon Dioxide 26 (22-30) mmol/L Anion Gap 18 mmol/L BUN 17 (7-17) mg/dL Creatinine 0.7 (0.7-1.2) mg/dL Estimated GFR > 60 ml/min BUN/Creatinine Ratio 24 % Glucose 202 H (65-100) mg/dL Calcium 9.3 (8.4-10.2) mg/dL Total Bilirubin 0.20 (0.1-1.2) mg/dL AST 8 (5-40) units/L ALT 14 (7-56) units/L Alkaline Phosphatase 63 (35-129) units/L Total Protein 7.8 (6.3-8.2) g/dL Albumin 4.2 (3.9-5) g/dL Albumin/Globulin Ratio 1.2 % Lipase 27 (13-60) units/L Urine Color Yellow (Yellow) Urine Turbidity Clear (Clear) Urine pH 5.0 (5.0-7.0) Ur Specific [place] 1.019 (1.003-1.030) Urine Protein 30 mg/dl (Negative) mg/dL Urine Glucose (UA) Neg (Negative) mg/dL Urine Ketones Neg (Negative) mg/dL Urine Blood Sm (Negative) Urine Nitrite Neg (Negative) Urine Bilirubin Neg (Negative) Urine Urobilinogen < 2.0 (<2.0) mg/dL Ur Leukocyte Esterase Neg (Negative) Urine WBC (Auto) 1.0 (0.0-6.0) /HPF Urine RBC (Auto) 1.0 (0.0-6.0) /HPF U Epithel Cells (Auto) 3.0 (0-13.0) /HPF Urine Bacteria (Auto) 1+ (Negative) /HPF Urine Mucus Few /HPF - Medical Decision Making This is a 53-year-old female here with lower back pain and abdominal pain 2 days that she is here to be checked. She has had similar incident in the past. Labs: CBC and CMP is stable except blood glucose on chemistry is 200. Patient is diabetic on medication. Urinalysis able except she had stable except she has small amount of blood and 1+ bacteria therefore urine sent for culture. Radiology: CT scan of the abdomen and pelvis ordered and patient refused. Referred to sign consent on chart Patient remained stable throughout ED course without any distress. She was given [place] 5/325 mg 2 tablets by mouth which helped her pain. Assessment/plan 1: Abdominal pain-better would [place]. 2-or back pain-better would [place] Patient able to tolerate crackers and juice in emergency room without any nausea or vomiting. I discussed with her diagnosis and treatment plan I told she needs to follow up with primary care physician or she does not have a primary care physician to follow up at [facility] in 2 days and she voiced understanding. Patient discharged home in stable condition with prescription for Bentyl and Tylenol No. 3. She was understanding the discharge instruction and that if her condition worsens to return to the emergency room FREDI. - Differential Diagnosis pyelo, malignancy, colitis, appendicitis, kidney stones, enteritis, UTI, Critical care attestation.: If time is entered above; I have spent that time in minutes in the direct care of this critically ill patient, excluding procedure time. ED Disposition Clinical Impression: Back pain Qualifiers: Back pain location: low back pain Chronicity: unspecified Back pain laterality: bilateral Sciatica presence: without sciatica Qualified Code(s): M54.5 - Low back pain Abdominal pain Qualifiers: Abdominal location: lower abdomen, unspecified Qualified Code(s): R10.30 - Lower abdominal pain, unspecified Disposition: DC-01 TO HOME OR SELFCARE Is pt being admited?: No Does the pt Need Aspirin: No Condition: Stable Instructions: Abdominal Pain (ED), Chronic Back Pain (ED) Additional Instructions: Follow-up with your primary care physician or [facility] in 2 days follow-up back pain and lower abdominal pain. If you condition worsens, return to the emergency room Take medication as prescribed You refused ear abdominal CT scan today and if you continue to have pain he can return to the emergency room to have this done. Prescriptions: Dicyclomine [Bentyl] 10 mg PO Q8H 3 Days #12 capsule Acetaminophen/Codeine [Tylenol /Codeine # 3 tab] 1 tab PO Q8H PRN #12 tab PRN Reason: severe pain Referrals: PARUL DSEIR MD [Primary Care Provider] - 12/12/18 [facility] [Outside] - 12/12/18 Forms: Work/School Release Form(ED), AMA Form
[2018-12-10 18:43] LABS: Bacteria,Urine 1+ /HPF (Negative); Bilirubin,Urine NEG (Negative); Blood,Urine SM (Negative); Color,Urine Yellow (Yellow); Mucus,Urine FEW /HPF; Urobilinogen,Urine < 2.0 mg/dL (<2.0)
[2018-12-10] MEDS ORDERED: NORCO 5/325 PO ONE (20:01)
== END 2018-12-10 20:23 | disposition home or self-care (01) ==
LOC: ED 15:37
DX: M54.5 Low back pain (principal); R10.30 Lower abdominal pain, unspecified; I10 Essential (primary) hypertension; E11.9 Type 2 diabetes mellitus without complications; F17.200 Nicotine dependence, unspecified, uncomplicated; Z87.442 Personal history of urinary calculi; Z21 Asymptomatic human immunodeficiency virus [HIV] infection status; Z79.4 Long term (current) use of insulin; Z90.49 Acquired absence of other specified parts of digestive tract
CPT/HCPCS: 36415; 80053; 81001; 83690; 85025; 87086; 99283

== ENCOUNTER 2019-01-28 14:46 | Emergency (ER) | payer MEDICARE ==
[2019-01-28 14:55] VITALS: BP 123/81
--- NOTE | 2019-01-28 14:55 | Event Note ---
ED Screening Note Date of service: 01/28/19 Time: 14:53 ED Screening Note: 53 y/o female comes in for arm and leg pain that is burning. Back pain and feet numbness. This initial assessment/diagnostic orders/clinical plan/treatment(s) is/are subject to change based on patients health status, clinical progression and re- assessment by fellow clinical providers in the ED. Further treatment and workup at subsequent clinical providers discretion. Patient/guardian urged not to elope from the ED as their condition may be serious if not clinically assessed and managed. Initial orders include:
--- NOTE | 2019-01-28 15:57 | XRay Report ---
PROCEDURE: XR SPINE LUMBOSACRAL 2-3V TECHNIQUE: Lumbosacral spine, 3 views HISTORY: back pain COMPARISONS: None FINDINGS: No scoliosis. The vertebral body heights and alignment are maintained. There are degenerative disc ch anges at L3-4 and L4-5, with anterior osteophyte formation. Disc spaces are preserved. There is aorti c atherosclerotic calcification. IMPRESSION: Degenerative disc changes at L3-4 and L4-5. This document is electronically signed by Yaneth Chopra MD., January 28 2019 03:55:40 PM ET
[2019-01-28] MEDS ORDERED: NORCO 5/325 PO ONE (17:43)
[2019-01-28] MEDS ORDERED: FLEXERIL PO ONE (17:43)
[2019-01-28] MEDS ORDERED: DELTASONE PO ONE (17:45)
--- NOTE | 2019-01-28 17:55 | Emergency Department Report ---
ED Back Pain/Injury HPI - General Chief Complaint: Pain General Stated Complaint: LOW BACK PAIN/LEG NUMBNESS Time Seen by Provider: 01/28/19 17:42 Source: patient Limitations: No Limitations - History of Present Illness Initial Comments: pt is a 53 y/o female with hx of chronic low back pain dMII, HIV pos who comes in for arm and leg pain that is burning. Back pain and feet numbness, pt dx of diabetic peripheral radiculopathy , there is no dysuria frequency or urgency no fall injury or trauma no weakness or paralysis no loss or decrease in bowel or bladder function. MD Complaint: back pain Onset/Timin -: week(s) Similar Symptoms Previously: Yes Place: home Severity: moderate Severity scale (0 -10): 5 Quality: burning, aching Consistency: intermittent Improves With: other (rest ) Worsens With: movement, sitting upright, walking Associated Symptoms: numbness. denies: weakness, difficulty urinating, incontinence, constipation, abdominal pain, loss of appetite, nausea/vomiting, seizure, shortness of breath - Related Data Home Medications Medication Instructions Recorded Confirmed Last Taken Acetaminophen [Arthritis Pain 650 mg PO DAILY 08/01/18 08/01/18 Unknown Relief] AtorvaSTATin [Lipitor] 1 tab PO DAILY 08/01/18 08/01/18 Unknown Docusate Sodium [Dok] 100 mg PO DAILY 08/01/18 08/01/18 Unknown Dolutegravir/Rilpivirine [[place] 1 tab PO DAILY 08/01/18 08/01/18 Unknown 50-25 mg Tablet] Ibuprofen 600 mg PO DAILY 08/01/18 08/01/18 Unknown Insulin Aspart [NovoLOG 100 15 - 20 unit SUB-Q TID 08/01/18 08/01/18 Unknown UNITS/ML VIAL] Insulin Glargine [Lantus VIAL] 40 units SUB-Q HS 08/01/18 08/01/18 Unknown Lisinopril [Prinivil] 1 tab PO DAILY 08/01/18 08/01/18 Unknown Naproxen 500 mg PO DAILY 08/01/18 08/01/18 Unknown Previous Rx's Medication Instructions Recorded Last Taken Type HYDROcodone/APAP 5-325 [[place] 1 each PO Q6HR PRN #10 tablet 10/29/18 Unknown Rx 5/325] Promethazine [Phenergan] 25 mg PO Q6HR PRN #10 tab 10/29/18 Unknown Rx HYDROcodone/ACETAMINOPHEN 1 each PO Q6HR PRN #10 tablet 10/31/18 Unknown Rx [Hydrocodone-Acetamin 5-325 mg] Acetaminophen/Codeine [Tylenol 1 tab PO Q8H PRN #12 tab 12/10/18 Unknown Rx /Codeine # 3 tab] Dicyclomine [Bentyl] 10 mg PO Q8H 3 Days #12 capsule 12/10/18 Unknown Rx Ondansetron [Zofran ODT TAB] 1 tab PO Q8H PRN #12 tab 12/10/18 Unknown Rx Cyclobenzaprine [Flexeril] 10 mg PO TID PRN #30 tablet 01/28/19 Unknown Rx Menthol/Camphor [[place] 1 applicatio TP QID PRN #1 tube 01/28/19 Unknown Rx Ointment] Naproxen [Naprosyn TAB] 500 mg PO BID PRN #30 tablet 01/28/19 Unknown Rx predniSONE [Deltasone] 40 mg PO QDAY 5 Days #10 tab 01/28/19 Unknown Rx Allergies Allergy/AdvReac Type Severity Reaction Status Date / Time No Known Allergies Allergy Verified 05/08/18 08:51 ED Review of Systems ROS: Stated complaint: LOW BACK PAIN/LEG NUMBNESS Other details as noted in HPI Constitutional: denies: chills, fever Eyes: denies: eye pain, eye discharge, vision change ENT: denies: ear pain, throat pain Respiratory: denies: cough, shortness of breath, wheezing Cardiovascular: denies: chest pain, palpitations Endocrine: no symptoms reported Gastrointestinal: denies: abdominal pain, nausea, diarrhea Genitourinary: denies: urgency, dysuria, frequency, hematuria, discharge, dyspareunia Musculoskeletal: back pain, arthralgia, myalgia Skin: denies: rash, lesions Neurological: numbness (bilat fee ). denies: headache, weakness, paresthesias, confusion, vertigo Psychiatric: denies: anxiety, depression Hematological/Lymphatic: denies: easy bleeding, easy bruising ED Past Medical Hx - Past Medical History Previous Medical History?: Yes Hx Hypertension: Yes (resolved ) Hx Heart Attack/AMI: No Hx Diabetes: Yes Hx Deep Vein Thrombosis: No Hx Liver Disease: No Hx Renal Disease: Yes (ARF 1 year ago, dialysis for 3months but not now) Hx Sickle Cell Disease: No Hx Seizures: No Hx Asthma: No Hx COPD: No Hx HIV: Yes - Surgical History Past Surgical History?: Yes Hx Pacemaker: No Hx Internal Defibrillator: No Hx Cholecystectomy: Yes Hx Appendectomy: Yes Additional Surgical History: x 3. PERMA CATH AND REMOVAL. PSEUDO CYSTS REMOVED FROM PANCREAS (2016) - Social History Smoking Status: Never Smoker Substance Use Type: None - Medications Home Medications: Home Medications Medication Instructions Recorded Confirmed Last Taken Type Acetaminophen [Arthritis Pain 650 mg PO DAILY 08/01/18 08/01/18 Unknown History Relief] AtorvaSTATin [Lipitor] 1 tab PO DAILY 08/01/18 08/01/18 Unknown History Docusate Sodium [Dok] 100 mg PO DAILY 08/01/18 08/01/18 Unknown History Dolutegravir/Rilpivirine [[place] 1 tab PO DAILY 08/01/18 08/01/18 Unknown History 50-25 mg Tablet] Ibuprofen 600 mg PO DAILY 08/01/18 08/01/18 Unknown History Insulin Aspart [NovoLOG 100 15 - 20 unit SUB-Q TID 08/01/18 08/01/18 Unknown History UNITS/ML VIAL] Insulin Glargine [Lantus VIAL] 40 units SUB-Q HS 08/01/18 08/01/18 Unknown Hist ory Lisinopril [Prinivil] 1 tab PO DAILY 08/01/18 08/01/18 Unknown History Naproxen 500 mg PO DAILY 08/01/18 08/01/18 Unknown History HYDROcodone/APAP 5-325 [[place] 1 each PO Q6HR PRN #10 tablet 10/29/18 Unknown Rx 5/325] Promethazine [Phenergan] 25 mg PO Q6HR PRN #10 tab 10/29/18 Unknown Rx HYDROcodone/ACETAMINOPHEN 1 each PO Q6HR PRN #10 tablet 10/31/18 Unknown Rx [Hydrocodone-Acetamin 5-325 mg] Acetaminophen/Codeine [Tylenol 1 tab PO Q8H PRN #12 tab 12/10/18 Unknown Rx /Codeine # 3 tab] Dicyclomine [Bentyl] 10 mg PO Q8H 3 Days #12 capsule 12/10/18 Unknown Rx Ondansetron [Zofran ODT TAB] 1 tab PO Q8H PRN #12 tab 12/10/18 08/01/18 Unknown Rx Cyclobenzaprine [Flexeril] 10 mg PO TID PRN #30 tablet 01/28/19 Unknown Rx Menthol/Camphor [[place] 1 applicatio TP QID PRN #1 tube 01/28/19 Unknown Rx Ointment] Naproxen [Naprosyn TAB] 500 mg PO BID PRN #30 tablet 01/28/19 Unknown Rx predniSONE [Deltasone] 40 mg PO QDAY 5 Days #10 tab 01/28/19 Unknown Rx ED Physical Exam - General Limitations: No Limitations General appearance: alert, in no apparent distress - Head Head exam: Present: atraumatic, normocephalic - Eye Eye exam: Present: normal appearance, PERRL, EOMI Pupils: Present: normal accommodation - ENT ENT exam: Present: mucous membranes moist - Neck Neck exam: Present: normal inspection, full ROM. Absent: tenderness, meningismus, lymphadenopathy, thyromegaly - Expanded Neck Exam Expanded Neck exam: Absent: tenderness, midline deformity, thyroid mass, carotid bruit, tracheal deviation - Respiratory Respiratory exam: Present: normal lung sounds bilaterally. Absent: respiratory distress, wheezes, stridor, chest wall tenderness - Cardiovascular Cardiovascular Exam: Present: regular rate, normal rhythm, normal heart sounds. Absent: systolic murmur, diastolic murmur, rubs, gallop - GI/Abdominal GI/Abdominal exam: Present: soft, normal bowel sounds. Absent: distended, tenderness, guarding, rebound, rigid, bruit, hernia - Rectal Rectal exam: Present: deferred - Extremities Exam Extremities exam: Present: normal inspection, full ROM, normal capillary refill. Absent: tenderness, pedal edema, joint swelling, calf tenderness - Back Exam Back exam: Present: tenderness, muscle spasm, paraspinal tenderness. Absent: CVA tenderness (R), CVA tenderness (L), vertebral tenderness, rash noted - Expanded Back Exam Expanded Back exam: Present: other (no posterior vertebral point tenderness ). Absent: saddle anesthesia Back exam: Sciatic Notch Tenderness: Left, Positive Straight Leg Raise: Left, Negative Straight Leg Raising: Right - Neurological Exam Neurological exam: Present: alert, oriented X3, CN II-XII intact, normal gait, reflexes normal. Absent: motor sensory deficit - Expanded Neurological Exam Expanded Patient oriented to: Present: person, place, time Speech: Present: fluid speech Cranial nerves: EOM's Intact: Normal, Gag Reflex: Normal, Tongue Deviation: Normal, Nystagmus: Normal, Facial Sensation: Normal Cerebellar function: Finger to Nose: Normal, Heel to [place]: Normal, Romberg: Normal Upper motor neuron: Tahir Neglect: Normal, Pronator Drift: Normal, Babinski Sign: Normal, Sensory Extinction: Normal Sensory exam: Upper Extremity Light Touch: Normal, Upper Extremity Pin Prick: Normal, Upper Extremity Temperature: Normal, UE 2 Point Discrimination: Normal, Lower Extremity Light Touch: Normal, Lower Extremity Pin Prick: Normal, Lower Extremity Temperature: Normal, LE 2 Point Discrimination: Normal Motor strength exam: RUE: 5, LUE: 5, RLE: 5, LLE: 5 DTR: bicep (R): 2+, bicep (L): 2+, ankle (R): 2+, ankle (L): 2+ Best Eye Response ([place]): (4) open spontaneously Best Motor Response ([place]): (6) obeys commands Best Verbal Response ([place]): (5) oriented [place] Total: 15 - Psychiatric Psychiatric exam: Present: normal affect, normal mood - Skin Skin exam: Present: warm, dry, intact, normal color. Absent: rash ED Course Vital Signs 01/28/19 14:53 Temperature 97.9 F Pulse Rate 97 H Respiratory 16 Rate Blood Pressure 123/81 O2 Sat by Pulse 99 Oximetry ED Medical Decision Making - Radiology Data Radiology results: report reviewed degenerative disc disease L3-4, L4-L5, no fracture no soft tissue abnormality - Medical Decision Making this is radiculopathy flare, plan short burst steriods, nsaids, muscle relaxant follow up with pcp in 2-3 days return to ed if symptoms worsen, pt verbalized agreement and understanding of same. Critical care attestation.: If time is entered above; I have spent that time in minutes in the direct care of this critically ill patient, excluding procedure time. ED Disposition Clinical Impression: Lumbar radiculopathy, acute Disposition: - TO HOME OR SELFCARE Is pt being admited?: No Does the pt Need Aspirin: No Condition: Stable Instructions: Acute Low Back Pain (ED), Core Strengthening Exercises (GEN) Prescriptions: predniSONE [Deltasone] 40 mg PO QDAY 5 Days #10 tab Cyclobenzaprine [Flexeril] 10 mg PO TID PRN #30 tablet PRN Reason: Muscle Spasm Naproxen [Naprosyn TAB] 500 mg PO BID PRN #30 tablet PRN Reason: Pain , Severe (7-10) Menthol/Camphor [[place] Ointment] 1 applicatio TP QID PRN #1 tube PRN Reason: pain Referrals: AVELINO ALLEN MD [Staff Physician] - 3-5 Days BARBARA SWAN MD [Staff Physician] - 3-5 Days Forms: Work/School Release Form(ED) Time of Disposition: 18:04
== END 2019-01-28 18:19 | disposition home or self-care (01) ==
LOC: ED 14:46
DX: M54.16 Radiculopathy, lumbar region (principal); I10 Essential (primary) hypertension; E11.9 Type 2 diabetes mellitus without complications; N17.9 Acute kidney failure, unspecified; Z90.49 Acquired absence of other specified parts of digestive tract; Z90.89 Acquired absence of other organs; Z98.890 Other specified postprocedural states; Z79.899 Other long term (current) drug therapy; Z79.4 Long term (current) use of insulin
CPT/HCPCS: 72100; 99283; J7512

== ENCOUNTER 2019-09-21 10:11 | Outpatient (CLI) | payer OTHER ==
--- NOTE | 2019-09-21 11:10 | XRay Report ---
Right elbow-2 views INDICATION: TENDONITIS RIGHT ELBOW. COMPARISON: None. IMPRESSION: No acute osseous or soft tissue abnormality. Mild DJD in the medial and posterior com partments. Signer Name: Rod Rosado MD Signed: 09/21/2019 11:06 AM Workstation Name: [id number]
--- NOTE | 2019-09-21 11:10 | XRay Report ---
RIGHT HAND 2 VIEWS INDICATION / CLINICAL INFORMATION: ARTHRITIS IN RIGHT HAND. COMPARISON: None available. FINDINGS: Mild degenerative change in the distal interphalangeal joint of the index finger and in the interphal angeal joint of the thumb. No other significant skeletal abnormality. Signer Name: Lavell NEFF Signed: 09/21/2019 11:06 AM Workstation Name: [id number]
--- NOTE | 2019-09-21 11:11 | XRay Report ---
Lumbar spine-2 views INDICATION: ARTHRITIS LOWER BACK. COMPARISON: Lumbar spine radiographs from 01/28/2019 IMPRESSION: Normal alignment. Mild multilevel discogenic DJD and facet arthropathy. No acute osseo us or soft tissue abnormality. Signer Name: Rod Rosado MD Signed: 09/21/2019 11:07 AM Workstation Name: [email or web address]
--- NOTE | 2019-09-21 11:11 | XRay Report ---
Right shoulder-3 views INDICATION: ARTHRITIS. COMPARISON: None. IMPRESSION: No acute osseous or soft tissue abnormality. Mild acromioclavicular and glenohumeral DJD. Signer Name: Rod Rosado MD Signed: 09/21/2019 11:07 AM Workstation Name: [email or web address]
== END 2019-09-21 10:12 | disposition home or self-care (01) ==
LOC: XRAY 10:11
PROVIDERS: ATTEND Internal Medicine
DX: M19.041 Primary osteoarthritis, right hand (principal); M13.88 Other specified arthritis, other site; M77.9 Enthesopathy, unspecified; M19.021 Primary osteoarthritis, right elbow; E11.9 Type 2 diabetes mellitus without complications; M46.80 Other specified inflammatory spondylopathies, site unspecified
CPT/HCPCS: 72100

== ENCOUNTER 2021-08-12 13:27 | Emergency (ER) | payer MEDICAID, OTHER | END 2021-08-12 13:30 | disposition left against medical advice (07) | LOC: ED 13:27 | DX: R10.9 Unspecified abdominal pain (principal); Z53.21 Procedure and treatment not carried out due to patient leaving prior to being seen by health care provider ==